=== PATIENT | female | born 1985 | race Caucasian/White ===

== ENCOUNTER 2016-12-23 12:09 | Emergency (ER) | payer MEDICAID | END 2016-12-23 14:41 | disposition home or self-care (01) | DX: L73.9 Follicular disorder, unspecified (principal); J45.909 Unspecified asthma, uncomplicated; K21.9 Gastro-esophageal reflux disease without esophagitis; F17.200 Nicotine dependence, unspecified, uncomplicated ==

== ENCOUNTER 2017-01-28 12:51 | Emergency (ER) | payer MEDICAID ==
[2017-01-28] MEDS ORDERED: ONDANSETRON ODT 4 MG TABLET TL STA (13:34)
[2017-01-28] MEDS ORDERED: IBUPROFEN 800 MG TABLET PO STA (13:34)
[2017-01-28] MEDS ORDERED: ONDANSETRON ODT 4 MG TABLET ONE (13:35)
[2017-01-28] MEDS ORDERED: IBUPROFEN 800 MG TABLET PO ONE (13:36)
--- NOTE | 2017-01-28 13:36 | ED Physician Documentation ---
PD HPI ABD PAIN - Stated complaint Stated Complaint: FEMALE - Chief complaint Chief Complaint: Back Pain - History obtained from History obtained from: Patient - History of Present Illness Timing - onset: Other (31-year-old woman with history of conservatively managed renal colic with 3 days of urinary frequency and today right greater than left flank pain wrapping around to the front with continued urinary frequency and suprapubic pressure. She is currently on her menses. She is nauseous but no vomiting. She has had chills but no fevers.) Review of Systems Constitutional: reports: Chills. denies: Fever Cardiac: denies: Chest pain / pressure, Palpitations Respiratory: denies: Dyspnea, Cough GI: reports: Nausea. 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, Tubal ligation HEENT: Tonsil/Adenoidectomy - Present Medications Home Medications: Ambulatory Orders Medication Instructions Recorded Confirmed Control 1 tab PO DAILY 12/23/16 Mupirocin Calcium [Bactroban] 1 applic TP BID #60 g 12/23/16 Naphazoline HCl/Pheniramine 1 drops OP Q6H #15 ml 12/23/16 [Naphcon-A Eye Drops] Ciprofloxacin HCl [Cipro] 500 mg PO BID #14 tablet 01/28/17 Ondansetron HCl [Zofran] 4 mg PO Q6H PRN #10 tablet 01/28/17 Oxycodone HCl/Acetaminophen 1 - 2 tab PO Q4H PRN #15 tablet 01/28/17 [Percocet 5-325 mg Tablet] - Allergies Allergies/Adverse Reactions: Allergies Allergy/AdvReac Type Severity Reaction Status Date / Time Cephalosporins Allergy Severe Respiratory Verified 12/23/16 12:18 hydromorphone HCl * Allergy Intermediate Hives Verified 12/23/16 12:18 [From Dilaudid] - Social History Does the pt smoke?: Yes Smoking Status: Current some day smoker Does the pt drink ETOH?: No Does the pt have substance abuse?: No - Immunizations Immunizations are current?: Yes - POLST Patient has POLST: No PD ED PE NORMAL - Vitals Vital signs reviewed: Yes - General General: Alert and oriented X 3, No acute distress - Abdomen Abdomen: Normal bowel sounds, Soft, Non tender - Back Back: Other (+R flank TTP) - Derm Derm: Normal color, Warm and dry - Extremities Extremities: No edema, No calf tenderness / cord - Neuro Neuro: Alert and oriented X 3, Normal speech - Psych Psych: Normal mood, Normal affect Results - Vitals Vitals: Vital Signs - 24 hr 01/28/17 12:59 Temperature 36.6 C Heart Rate 76 Respiratory 16 Rate Blood Pressure 118/71 O2 Saturation 98 Oxygen O2 Source Room air - Labs Labs: Laboratory Tests 01/28/17 13:30 Urine Color YELLOW Urine Clarity HAZY Urine pH 5.5 Ur Specific [place] >=1.030 H Urine Protein 30 H Urine Glucose (UA) NEGATIVE Urine Ketones NEGATIVE Urine Occult Blood MODERATE H Urine Nitrite POSITIVE H Urine Bilirubin NEGATIVE Urine Urobilinogen 0.2 (NORMAL) Ur Leukocyte Esterase MODERATE H Urine RBC 6-10 H Urine WBC >25 H Ur Squamous Epith Cells RARE Squamous Urine Bacteria None Seen Urine Mucus Few Strands Ur Microscopic Review INDICATED Urine Culture Comments INDICATED Urine HCG, Qual NEGATIVE - Rads (name of study) CT KUB Radiology: EMP read contemporaneously (neg x LAD) PD MEDICAL DECISION MAKING - ED course ED course: 31-year-old woman with clinically likely pyelonephritis but with some hematuria and she feels like it is consistent with prior renal colic so infected stone is a concern for CT shows no evidence of this. Initially treated with only NSAIDs as she was driving but her arrived and felt much better after Percocet. The patient and family were counseled as to the diagnosis and need for followup. I counseled the patient with regard to signs and symptoms that would necessitate an urgent reevaluation in the emergency department. They understand they are welcome to return at any time if worse or if not improving as expected. This document was made in part using voice recognition software. While efforts are made to proofread this document, sound alike and grammatical errors may occur. Departure - Departure Disposition: 01 Home, Self Care Clinical Impression: Pyelonephritis Condition: Good Record reviewed to determine appropriate education?: Yes Instructions: Pyelonephritis Dc Prescriptions: Ciprofloxacin HCl [Cipro] 500 mg PO BID #14 tablet Oxycodone HCl/Acetaminophen [Percocet 5-325 mg Tablet] 1 - 2 tab PO Q4H PRN #15 tablet PRN Reason: Pain Ondansetron HCl [Zofran] 4 mg PO Q6H PRN #10 tablet PRN Reason: Nausea / Vomiting Comments: As we discussed we will culture your urine, this results should be done in 48- 72 hours. If an antibiotic change is necessary we will call you. Return if worse in the meantime, especially if you develop flank pain or fevers or cannot keep down the medication. Call your doctor to arrange a follow up appointment. Make the next available appointment. In the interim return anytime if worse or if new symptoms develop. Forms: Activity restrictions
[2017-01-28 13:42] LABS: BILIRUBIN,URINE NEGATIVE (NEGATIVE); PH,URINE 5.5 PH (5.0-7.5)
[2017-01-28 13:45] LABS: HCG UR QUAL NEGATIVE; UA w/ MICROSCOPIC CHARGE YES
[2017-01-28 13:52] LABS: UR CULTURE IF IND INDICATED; WBC,URINE >25 /HPF (0-5)
[2017-01-28] MEDS ORDERED: CIPROFLOXACIN 250 MG TABLET PO STA (14:04)
[2017-01-28] MEDS ORDERED: CIPROFLOXACIN 250 MG TABLET PO ONE (14:06)
[2017-01-28] MEDS ORDERED: oxyCOD/ACETAMIN 5 MG/325 MG TABLET PO STA (14:22)
[2017-01-28] MEDS ORDERED: oxyCOD/ACETAMIN 5 MG/325 MG TABLET PO ONE (14:23)
--- NOTE | 2017-01-28 14:58 | CT Preliminary Report ---
Exam: CT Abdomen/Pelvis W/O IMPRESSION: 1. Negative for urinary tract stone or hydronephrosis. 2. Mildly prominent right lower quadrant mesenteric lymph nodes, probably lymphadenitis. [facility] SITE ID: [id number]
--- NOTE | 2017-01-28 15:00 | CT Report ---
EXAM: CT ABDOMEN AND PELVIS (CT KUB) EXAM DATE: 01/28/2017 02:22 PM. CLINICAL HISTORY: R flank pain, UTI, H/O stone, R/O inf stone. COMPARISONS: None. TECHNIQUE: Routine axial helical CT imaging was performed through the abdomen and pelvis without IV c ontrast. Reconstructions: Coronal and sagittal. In accordance with CT protocol optimization, one or more of the following dose reduction techniques w ere utilized for this exam: automated exposure control, adjustment of mA and/or KV based on patient s ize, or use of iterative reconstructive technique. FINDINGS: Lung Bases: Unremarkable. Right Kidney/Ureter: No stones, hydronephrosis, or hydroureter. No perinephric fat stranding. Left Kidney/Ureter: No stones, hydronephrosis, or hydroureter. No perinephric fat stranding. Other Solid Organs: Noncontrast images of the solid organs are grossly unremarkable. Gallbladder/Bile Ducts: Unremarkable. Peritoneal Cavity: Numerous mildly prominent right lower quadrant mesenteric lymph nodes generally me asuring 6-9 mm. No free fluid, free air, or periaortic lymphadenopathy. No bowel dilation. Normal shala endix. Pelvic Organs: No bladder stones or wall thickening. Noncontrast images of the visualized pelvic orga ns are unremarkable. Vasculature: Unremarkable. Other: None. IMPRESSION: 1. Negative for urinary tract stone or hydronephrosis. 2. Mildly prominent right lower quadrant mesenteric lymph nodes, probably lymphadenitis. [facility] Referring Provider Line: [phone] SITE ID: [id number]
[2017-01-28 15:13] VITALS: BP 108/64
== END 2017-01-28 15:13 | disposition home or self-care (01) ==
LOC: ED 12:51
DX: N12 Tubulo-interstitial nephritis, not specified as acute or chronic (principal); F17.200 Nicotine dependence, unspecified, uncomplicated
CPT/HCPCS: 74176; 81001; 81025; 87077; 87086; 87181; 99282; 99284; A9270; Q0162; 81003

== ENCOUNTER 2017-02-24 17:35 | Emergency (ER) | payer MEDICAID ==
[2017-02-24 17:42] VITALS: BP 124/86
--- NOTE | 2017-02-24 19:57 | ED Physician Documentation ---
PD HPI LOWER EXT INJURY - Stated complaint Stated Complaint: RT KNEE PX - Chief complaint Chief Complaint: Ext Problem - History obtained from History obtained from: Patient - History of Present Illness PD HPI LOW EXT INJURY LOCATION: Right, Knee Type of injury: Twist (no forceful injury. 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 Noted onset of pain when just getting up from floor and felt pain in rihgt knee anteriorly. Having effusion/swelling of the knee later in the day, which has persisted a few days. Pain with flex/extend, twisting, and has had feelings of "unreliable" walking and some giving out/clicking. Has not had locking.). No: Fall, Blunt / blow Where injury occurred: Home Timing - onset: How many days ago (4) Timing - duration: Days (4) Timing - details: Gradual onset, Still present Improved by: Rest Worsened by: Moving, Other (walking) Associated symptoms: Swelling. 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, Ovarian cysts : None HEENT: None Psych: None Musculoskeletal: None Derm: None - Past Surgical History Past Surgical 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, Tubal ligation HEENT: Tonsil/Adenoidectomy - Present Medications Home Medications: Ambulatory Orders Medication Instructions Recorded Confirmed Control 1 tab PO DAILY 12/23/16 02/24/17 Betamethasone/Propylene Glyc 1 applic EACHEYE DAILY 02/24/17 02/24/17 [Betamethasone Dp Aug 0.05% Oin] Hydrocodone/Acetaminophen [[place] 1 each PO Q6H PRN #20 tablet 02/24/17 5-325 Tablet] Naproxen [Naprosyn] 500 mg PO BID #20 tablet 02/24/17 Sertraline HCl [Zoloft] 100 mg PO DAILY 02/24/17 02/24/17 - Allergies Allergies/Adverse Reactions: Allergies Allergy/AdvReac Type Severity Reaction Status Date / Time Cephalosporins Allergy Severe Respiratory Verified 02/24/17 17:41 hydromorphone HCl * Allergy Intermediate Hives Verified 02/24/17 17:41 [From Dilaudid] - Social History Does the pt smoke?: Yes Smoking Status: Current some day smoker Does the pt drink ETOH?: No Does the pt have substance abuse?: No - Immunizations Immunizations are current?: Yes - POLST Patient has POLST: No PD ED PE NORMAL - Vitals Vital signs reviewed: Yes - General General: Alert and oriented X 3, Well developed/nourished - Back Back: No CVA TTP, No spinal TTP - Derm Derm: Normal color, Warm and dry, No rash - Extremities Extremities: Other (moderate effusion noted in right knee. Tender anteriorly, medially, popliteal area. Most areas tender so not able to get reasonable ligament testing of the knee. No gross laxity on ROM. Hurts for full extension and flex beyond about 60 degrees. No redness nor warmth of the knee. ) - Neuro Neuro: Alert and oriented X 3, No motor deficit, No sensory deficit Results - Vitals Vitals: Oxygen O2 Source Room air PD MEDICAL DECISION MAKING - ED course Complexity details: considered differential (seems like meniscal symptoms, though could have had ACL process, but not much of a force injury for that. I don't feel xrays are useful without mechanism of more forcefull injury. Will give knee brace and crutches, NSAIDs and pain meds. To see Ortho in about 4-7 days when effusion and degree of pain is less. At this point the brace and crutches would be sufficient for meniscal and ACL injury should that be the correct problem. ), d/w patient Departure - Departure Disposition: 01 Home, Self Care Clinical Impression: Knee injury Qualifiers: Encounter type: initial encounter Laterality: right Qualified Code(s): S89.91XA - Unspecified injury of right lower leg, initial encounter Condition: Stable Record reviewed to determine appropriate education?: Yes Instructions: ED Meniscal Injury Knee Poss Follow-Up: Dona Beasley MD [Primary Care Provider] - Dann Fisher MD [Provider Admit Priv/Credential] - Prescriptions: Naproxen [Naprosyn] 500 mg PO BID #20 tablet Hydrocodone/Acetaminophen [[place] 5-325 Tablet] 1 each PO Q6H PRN #20 tablet PRN Reason: Pain Comments: This sounds like it might be a meniscal injury versus cruciate ligament. The knee is tender enough right now to not get a good exam and so will treat it like those things with knee brace and crutches, NSIADs, pain meds. Give it time for the swelling to go down and should be easier to tell on exam. Follow up with Orthopedics next week, call tomorrow for an appt. Ice and elevate often the next couple of days. Knee brace when up and around and could even sleep with it if it helps. Discharge Date/Time: 02/24/17 20:55
[2017-02-24] MEDS ORDERED: HYDROcod/ACETAM 5/325 MG TABLET PO STA (20:28)
[2017-02-24] MEDS ORDERED: IBUPROFEN 600 MG TABLET PO STA (20:28)
[2017-02-24] MEDS ORDERED: HYDROcod/ACET 5/325 Prepack 6 PO ONE ×2 (20:28→20:31)
[2017-02-24] MEDS ORDERED: IBUPROFEN 600 MG TABLET PO ONE (20:31)
[2017-02-24] MEDS ORDERED: HYDROcod/ACETAM 5/325 MG TABLET ONE (20:31)
== END 2017-02-24 20:55 | disposition home or self-care (01) ==
LOC: ED 17:35
DX: S89.91XA Unspecified injury of right lower leg, initial encounter (principal); X50.1XXA Overexertion from prolonged static or awkward postures, initial encounter; Y93.89 Activity, other specified; Y92.009 Unspecified place in unspecified non-institutional (private) residence as the place of occurrence of the external cause; F17.200 Nicotine dependence, unspecified, uncomplicated
CPT/HCPCS: 99283; A9270

== ENCOUNTER 2017-11-10 18:59 | Emergency (ER) | payer MEDICAID ==
[2017-11-10] MEDS ORDERED: oxyCOD/ACETAMIN 5 MG/325 MG TABLET PO STA (19:44)
--- NOTE | 2017-11-10 19:53 | ED Physician Documentation ---
History of Present Illness - Stated complaint Stated Complaint: cough - Chief complaint Chief Complaint: General - History obtained from History obtained from: Patient - History of Present Illness Timing: Other (She has been sick for about a week with cough, right-sided headache, chills and body aches. Cough got worse 3 days ago when starting yesterday she started to run a fever. She has been taking Robitussin with incomplete relief.) Review of Systems Constitutional: reports: Fever, Chills, Myalgias, Fatigue Nose: denies: Rhinorrhea / runny nose, Congestion, Sinus pressure / pain Throat: denies: Sore throat Cardiac: reports: Chest pain / pressure Respiratory: reports: Cough. 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 HEENT: Tonsil/Adenoidectomy - Present Medications Home Medications: Ambulatory Orders Medication Instructions Recorded Confirmed Guaifenesin/Pseudoephedrne HCl 1 each PO BID PRN #20 tab.er.12h 11/10/17 [Mucinex D ER 600-60 mg Tablet] guaiFENesin/CODEINE [Robitussin AC] 5 - 10 ml PO Q6H PRN #120 ml 11/10/17 - Allergies Allergies/Adverse Reactions: Allergies Allergy/AdvReac Type Severity Reaction Status Date / Time Cephalosporins Allergy Severe Respiratory Verified 11/10/17 19:27 hydromorphone HCl * Allergy Intermediate Hives Verified 11/10/17 19:27 [From Dilaudid] acetaminophen [From Vicodin] Allergy Rash Verified 11/10/17 19:27 hydrocodone [From Vicodin] Allergy Rash Verified 11/10/17 19:27 - Social History Does the pt smoke?: Yes Smoking Status: Current every day smoker Does the pt drink ETOH?: No Does the pt have substance abuse?: No - Immunizations Immunizations are current?: Yes - POLST Patient has POLST: No PD ED PE NORMAL - Vitals Vital signs reviewed: Yes - General General: Alert and oriented X 3, No acute distress - HEENT HEENT: PERRL, EOMI, Ears normal, Moist mucous membranes - Neck Neck: Supple, no meningeal sign, No bony TTP - Cardiac Cardiac: RRR, No murmur - Respiratory Respiratory: No respiratory distress, Clear bilaterally - Abdomen Abdomen: Soft, Non tender - Derm Derm: Normal color, Warm and dry - Neuro Neuro: Alert and oriented X 3, Normal speech - Psych Psych: Normal mood, Normal affect Results - Vitals Vitals: Vital Signs - 24 hr 11/10/17 19:03 Temperature 36.3 C L Heart Rate 99 Respiratory 17 Rate Blood Pressure 127/75 O2 Saturation 100 Oxygen O2 Source Room air - EKG (time done) 2001 Rate: Rate (enter#) (86) Rhythm: NSR [place]: Normal Intervals: Normal [place] QRS: Normal Ischemia: Normal ST segments Computer interpretation: Agree with computer - Rads (name of study) 2v chest Radiology: EMP read contemporaneously (NAD) PD MEDICAL DECISION MAKING - ED course ED course: 32-year-old woman with what sounds like a viral syndrome but predominant and biphasic cough, normal vital signs. Chest x-ray negative. She was having chest pain with it as well which necessitated an EKG that was also normal. Departure - Departure Disposition: 01 Home, Self Care Clinical Impression: Upper respiratory infection Condition: Good Record reviewed to determine appropriate education?: Yes Instructions: ED URI Viral Prescriptions: guaiFENesin/CODEINE [Robitussin AC] 5 - 10 ml PO Q6H PRN #120 ml PRN Reason: Cough Guaifenesin/Pseudoephedrne HCl [Mucinex D ER 600-60 mg Tablet] 1 each PO BID PRN #20 tab.er.12h PRN Reason: congestion Comments: Call your doctor to arrange a follow-up appointment, make the next available appointment. In the interim, return anytime if worse or if new symptoms develop.
--- NOTE | 2017-11-10 20:22 | XRAY Preliminary Report ---
Exam: XR CHEST 2 VIEW X-RAY IMPRESSION: No acute intrathoracic plain film abnormality. [facility] SITE ID: [id number]
--- NOTE | 2017-11-10 20:22 | XRAY Report ---
EXAM: CHEST RADIOGRAPHY EXAM DATE: 11/10/2017 07:59 PM. CLINICAL HISTORY: Cough. COMPARISON: 07/12/2016. TECHNIQUE: 2 views. FINDINGS: Lungs/Pleura: No focal opacities evident. No pleural effusion. No pneumothorax. Normal volumes. Mediastinum: Heart and mediastinal contours are unremarkable. Other: None. IMPRESSION: No acute intrathoracic plain film abnormality. [facility] Referring Provider Line: [phone] SITE ID: [id number]
[2017-11-10 20:54] VITALS: BP 136/78
== END 2017-11-10 20:51 | disposition home or self-care (01) ==
LOC: ED 18:59
DX: J06.9 Acute upper respiratory infection, unspecified (principal); F17.200 Nicotine dependence, unspecified, uncomplicated
CPT/HCPCS: 71046; 93005; 99283; A9270

== ENCOUNTER 2017-12-25 17:36 | Emergency (ER) | payer MEDICAID ==
[2017-12-25 19:50] VITALS: BP 120/77
--- NOTE | 2017-12-25 20:14 | ED Physician Documentation ---
PD HPI LOWER EXT INJURY - Stated complaint Stated Complaint: RT ANKLE INJ - Chief complaint Chief Complaint: Ext Problem - History obtained from History obtained from: Patient - History of Present Illness PD HPI LOW EXT INJURY LOCATION: Right, Ankle Type of injury: Fall (she slipped on steps and struck ankle and pulled on Achilles. Has tight achilles so hurts with stretcching it.) Timing - onset: Today Timing - details: Abrupt onset, Still present Worsened by: Moving, Palpating, Other (flex and extend of ankle.) Associated symptoms: No: Weakness, Numbness, Swelling Similar symptoms before: Diagnosis (achilles strain - had partial tear when younger and healed stiff/short.) Recently seen: Not recently seen Review of Systems Skin: denies: Abrasion (s), Laceration (s) Musculoskeletal: denies: Neck pain, Back pain, Joint swelling Neurologic: denies: Focal weakness, Numbness PD PAST MEDICAL HISTORY - Past Medical History Past Medical History: Yes Cardiovascular: None Respiratory: Asthma Neuro: Headache/migraine Endocrine/Autoimmune: None GI: GERD 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, Ovarian cysts : None HEENT: None Psych: None Musculoskeletal: None Derm: None - Past Surgical History 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, 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 HEENT: Tonsil/Adenoidectomy - Present Medications Home Medications: Ambulatory Orders Medication Instructions Recorded Confirmed No Known Home Medications [No 12/25/17 12/25/17 Known Home Medications] - Allergies Allergies/Adverse Reactions: Allergies Allergy/AdvReac Type Severity Reaction Status Date / Time Cephalosporins Allergy Severe Respiratory Verified 11/10/17 19:27 hydromorphone HCl * Allergy Intermediate Hives Verified 11/10/17 19:27 [From Dilaudid] acetaminophen [From Vicodin] Allergy Rash Verified 11/10/17 19:27 hydrocodone [From Vicodin] Allergy Rash Verified 11/10/17 19:27 - Social History Does the pt smoke?: Yes Smoking Status: Current every day smoker Does the pt drink ETOH?: No Does the pt have substance abuse?: No - Immunizations Immunizations are current?: Yes - POLST Patient has POLST: No PD ED PE NORMAL - Vitals Vital signs reviewed: Yes - General General: Alert and oriented X 3, Well developed/nourished - Back Back: No spinal TTP - Derm Derm: Normal color, Warm and dry, No rash - Extremities Extremities: Other (achilles area laterally with tenderness. No palpable defect in Achilles. Limited ROM of ankle flex/ext due to hurting. No effusion. Not tender at malleoli. ) Results - Vitals Vitals: Oxygen O2 Source Room air PD MEDICAL DECISION MAKING - ED course Complexity details: reviewed results, considered differential (achilles tenderness without disruption. ), d/w patient Departure - Departure Disposition: 01 Home, Self Care Clinical Impression: Strain of right Achilles tendon, initial encounter Condition: Stable Record reviewed to determine appropriate education?: Yes Instructions: Achilles Tendonitis Follow-Up: Dona Beasley MD [Primary Care Provider] - [facility] [Provider Group] Comments: Use the walking boot when up and around for the next 1-2 weeks until better. Consider some ibuprofen 2-3 times a day for the next 5 or 6 days. Add Tylenol if needed for pain. Follow-up with orthopedics if not better over the next week or so. Discharge Date/Time: 12/25/17 20:45
[2017-12-25] MEDS ORDERED: IBUPROFEN 600 MG TABLET PO STA (20:28)
== END 2017-12-25 20:45 | disposition home or self-care (01) ==
LOC: ED 17:36
DX: F17.200 Nicotine dependence, unspecified, uncomplicated (principal); S86.011A Strain of right Achilles tendon, initial encounter; W10.9XXA Fall (on) (from) unspecified stairs and steps, initial encounter; Y93.01 Activity, walking, marching and hiking
CPT/HCPCS: 99282; 99283; A9270

== ENCOUNTER 2018-03-16 00:36 | Emergency (ER) | payer MEDICAID ==
[2018-03-16] MEDS ORDERED: diazePAM INJ 5 MG/ML SYRINGE IM STA (01:00)
[2018-03-16] MEDS ORDERED: DEXAMETHASONE 10 MG/ML VIAL PO STA (01:00)
[2018-03-16] MEDS ORDERED: KETOROLAC 60 MG/2 ML VIAL IM STA (01:00)
--- NOTE | 2018-03-16 01:02 | ED Physician Documentation ---
PD HPI BACK PAIN - Stated complaint Stated Complaint: LOWER BACK PX - Chief complaint Chief Complaint: Back Pain - History obtained from History obtained from: Patient - History of Present Illness Timing - onset: How many hours ago (1) Timing - duration: Hours (1) Timing - details: Abrupt onset Pain level max: 9 Pain level now: 9 Location: Lower, Right, Left Quality: Pain, Spasm Associated symptoms: No: Fever, Weakness, Numbness, Incontinent of urine, Unable to urinate, Hematuria, Incontinent of stool Improves with: Rest Worsened by: Movement, Lifting, Twisting Contributing factors: Twisting. No: Anticoagulated, Cancer, IVDA Similar symptoms before: Other (has seen a chiropractor for back pain) Recently seen: Not recently seen - Additional information Additional information: Patient states he was on her hands and knees looking for her cat when she twisted and felt something "pop" in her back. No increasing pain. Pain with movement especially. Has not taken anything for the pain Review of Systems Ten Systems: 10 systems reviewed and negative Constitutional: denies: Fever, Chills Ears: denies: Ear pain Throat: denies: Sore throat Cardiac: denies: Chest pain / pressure Respiratory: denies: Cough GI: denies: Abdominal Pain, Nausea, Vomiting, Diarrhea : denies: Dysuria, Frequency, Hesitancy, Unable to Void, Incontinent, Now EGA Skin: denies: Rash Musculoskeletal: denies: Neck pain Neurologic: reports: Numbness (States had tingling in the right arm and right leg, this has since resolved.). denies: Focal weakness, Headache PD PAST MEDICAL HISTORY - Past Medical History Cardiovascular: None Respiratory: Asthma Endocrine/Autoimmune: None GI: GERD CONTENT EDITOR: None, Ovarian cysts : None HEENT: None Psych: None Musculoskeletal: None Derm: None - Past Surgical History Past Surgical History: Yes /CONTENT EDITOR: section, Tubal ligation HEENT: Tonsil/Adenoidectomy - Present Medications Home Medications: Ambulatory Orders Medication Instructions Recorded Confirmed Meloxicam [Mobic] 15 mg PO DAILY PRN #20 tablet 03/16/18 Propranolol [Inderal] 40 mg PO TID 03/16/18 03/16/18 diazePAM [Valium] 5 - 10 mg PO TID PRN #15 tablet 03/16/18 - Allergies Allergies/Adverse Reactions: Allergies Allergy/AdvReac Type Severity Reaction Status Date / Time Cephalosporins Allergy Severe Respiratory Verified 03/16/18 00:47 hydromorphone HCl * Allergy Intermediate Hives Verified 03/16/18 00:47 [From Dilaudid] acetaminophen [From Vicodin] Allergy Rash Verified 03/16/18 00:47 hydrocodone [From Vicodin] Allergy Rash Verified 03/16/18 00:47 - Social History Does the pt smoke?: Yes Smoking Status: Current every day smoker Does the pt drink ETOH?: No Does the pt have substance abuse?: No - Immunizations Immunizations are current?: Yes - POLST Patient has POLST: No PD ED PE NORMAL - Vitals Vital signs reviewed: Yes - General General: Alert and oriented X 3, Other (Appears uncomfortable) - HEENT HEENT: PERRL, Ears normal, Moist mucous membranes, Pharynx benign - Neck Neck: Supple, no meningeal sign, No bony TTP - Cardiac Cardiac: RRR, Strong equal pulses - Respiratory Respiratory: No respiratory distress, Clear bilaterally - Abdomen Abdomen: Soft, Non tender, Non distended - Back Back: No CVA TTP, Other (Diffuse tenderness over the low lumbar spine. No step- off or deformity. Significant paraspinal muscle spasm present.) - Derm Derm: Warm and dry - Extremities Extremities: No deformity, No tenderness to palpate, No edema, Other (normal bilateral lower extremity patellar and ankle jerk reflexes. Normal great toe extension bilaterally) - Neuro Neuro: Alert and oriented X 3, No motor deficit, No sensory deficit, Other (No saddle anesthesia) Results - Vitals Vitals: Vital Signs - 24 hr 03/16/18 03/16/18 00:44 01:56 Temperature 36.8 C Heart Rate 89 69 Respiratory 20 16 Rate Blood Pressure 140/77 H 112/60 O2 Saturation 99 99 Oxygen O2 Source Room air - Rads (name of study) Lumbar spine x-ray Radiology: Prelim report reviewed, EMP read contemporaneously, See rad report ( No acute lumbar spine abnormality. ) PD MEDICAL DECISION MAKING - ED course Complexity details: reviewed results, re-evaluated patient, considered differential (no cauda equina, no spinal epidural abscess, no fracture, no aortic dissection or evidence of aneursym rupture), d/w patient ED course: Patient is a 32-year-old female who presents to the emergency department with what appears to be spasm of her lumbar spine area. Feels much better after Toradol and Valium. Ambulating well. No evidence of cauda equina, acute fracture. Normal x-ray. Her mother is driving her home. Patient counseled regarding signs and symptoms for which I believe and urgent re-evaluation would be necessary. Patient with good understanding of and agreement to plan and is comfortable going home at this time This document was made in part using voice recognition software. While efforts are made to proofread this document, sound alike and grammatical errors may occur. - Sepsis Event Vital Signs: Vital Signs - 24 hr 03/16/18 03/16/18 00:44 01:56 Temperature 36.8 C Heart Rate 89 69 Respiratory 20 16 Rate Blood Pressure 140/77 H 112/60 O2 Saturation 99 99 Oxygen O2 Source Room air Departure - Departure Disposition: 01 Home, Self Care Clinical Impression: Back muscle spasm Lumbar strain Qualifiers: Encounter type: initial encounter Qualified Code(s): S39.012A - Strain of muscle, fascia and tendon of lower back, initial encounter Condition: Good Instructions: ED Sprain Strain Lumbar Follow-Up: Dona Beasley MD [Primary Care Provider] - Within 1 week Prescriptions: diazePAM [Valium] 5 - 10 mg PO TID PRN #15 tablet PRN Reason: Spasms Meloxicam [Mobic] 15 mg PO DAILY PRN #20 tablet PRN Reason: pain Comments: Return if you worsen. This should improve over the next few days. You may also try a heating pads and ice packs at home. Do not drive or operate heavy machinery while taking the Valium Forms: Activity restrictions Discharge Date/Time: 03/16/18 02:02
[2018-03-16] MEDS ORDERED: diazePAM 5 MG TABLET PO STA (01:11)
[2018-03-16] MEDS ORDERED: CHERRY SYRUP 10 ML UDC PO ONE (01:24)
--- NOTE | 2018-03-16 01:35 | XRAY Report ---
Procedure Date: 03/16/2018 Accession Number: [id number] / [id number] Procedure: XR - Lumbar Spine 2 View CPT Code: FULL RESULT: EXAM: LUMBOSACRAL SPINE RADIOGRAPHY EXAM DATE: 03/16/2018 01:26 AM. CLINICAL HISTORY: Low back pain, L3-5. COMPARISONS: None. TECHNIQUE: 3 views. FINDINGS: Alignment: Unremarkable. Bones: Five [id number] lumbar vertebral bodies are present. No fractures or bone lesions. Disks: Disk heights are maintained. Facets: Unremarkable. Sacroiliac Joints: Unremarkable. Soft Tissues: Grossly unremarkable. IMPRESSION: 1. No acute lumbar spine abnormality. RADIA
[2018-03-16 01:58] VITALS: BP 112/60
== END 2018-03-16 02:02 | disposition home or self-care (01) ==
LOC: ED 00:36
DX: M62.830 Muscle spasm of back (principal); S39.012A Strain of muscle, fascia and tendon of lower back, initial encounter
CPT/HCPCS: 72100; 96372; 99283; A9270

== ENCOUNTER 2018-04-28 20:02 | Emergency (ER) | payer MEDICAID ==
[2018-04-28] MEDS ORDERED: predniSONE 20 MG TABLET PO STA (20:17)
[2018-04-28] MEDS ORDERED: diphenhydrAMINE 25 MG CAPSULE PO STA (20:27)
[2018-04-28 20:57] VITALS: BP 133/82
--- NOTE | 2018-04-28 21:04 | ED Physician Documentation ---
History of Present Illness - Stated complaint Stated Complaint: THROAT TIGHTNESS - Chief complaint Chief Complaint: Allergic Rx - History obtained from History obtained from: Patient, Family - History of Present Illness Timing: Today Pain level max: 0 Pain level now: 0 Improved by: benadryl Worsened by: nothing - Additonal information Additional information: Patient is a 32-year-old female who presents to the emergency department stating that after she was eating lunch today she felt tingling to the both sides of her face and scratching a sore throat. Seemed to improve with Benadryl but is now recurring. Has not having any difficulty breathing or swallowing at this time. No possibility of . 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, Ovarian cysts : None HEENT: None Psych: None Musculoskeletal: None Derm: None - Past Surgical History Past Surgical History: Yes /HOSPICE CHAPLAIN: section, Tubal ligation HEENT: Tonsil/Adenoidectomy - Present Medications Home Medications: Ambulatory Orders Medication Instructions Recorded Confirmed Meloxicam [Mobic] 15 mg PO DAILY PRN #20 tablet 03/16/18 Propranolol [Inderal] 40 mg PO TID 03/16/18 03/16/18 diazePAM [Valium] 5 - 10 mg PO TID PRN #15 tablet 03/16/18 predniSONE [Prednisone] 40 mg PO DAILY #6 tablet 04/28/18 - Allergies Allergies/Adverse Reactions: Allergies Allergy/AdvReac Type Severity Reaction Status Date / Time Cephalosporins Allergy Severe Respiratory Verified 04/28/18 20:06 hydromorphone HCl * Allergy Intermediate Hives Verified 04/28/18 20:06 [From Dilaudid] acetaminophen [From Vicodin] Allergy Rash Verified 04/28/18 20:06 hydrocodone [From Vicodin] Allergy Rash Verified 04/28/18 20:06 - Social History Does the pt smoke?: Yes Smoking Status: Current every day smoker Does the pt drink ETOH?: No Does the pt have substance abuse?: No - Immunizations Immunizations are current?: Yes - POLST Patient has POLST: No PD ED PE NORMAL - Vitals Vital signs reviewed: Yes - General General: Alert and oriented X 3, No acute distress - HEENT HEENT: Ears normal, Moist mucous membranes, Pharynx benign - Neck Neck: Supple, no meningeal sign - Cardiac Cardiac: RRR - Respiratory Respiratory: No respiratory distress, Clear bilaterally, Other (no wheezing or stridor) - Abdomen Abdomen: Soft, Non tender, Non distended - Derm Derm: Warm and dry, No rash - Extremities Extremities: No edema - Neuro Neuro: Alert and oriented X 3 - Psych Psych: Normal mood, Normal affect Results - Vitals Vitals: Vital Signs - 24 hr 04/28/18 04/28/18 20:06 20:56 Temperature 36.4 C L Heart Rate 80 75 Respiratory 18 16 Rate Blood Pressure 140/82 H 133/82 H O2 Saturation 99 98 Oxygen O2 Source Room air PD MEDICAL DECISION MAKING - ED course Complexity details: re-evaluated patient, considered differential, d/w patient, d/w family ED course: Patient is a 32-year-old female who presents with a generalized allergic reaction to food she was eating earlier today. Given steroids and Benadryl here. Symptoms resolved. Will place on steroids for the next few days and have her follow-up with her doctor. She has multiple food allergies and unsure what she was allergic to today. Patient counseled regarding signs and symptoms for which I believe and urgent re-evaluation would be necessary. Patient with good understanding of and agreement to plan and is comfortable going home at this time This document was made in part using voice recognition software. While efforts are made to proofread this document, sound alike and grammatical errors may occur. - Sepsis Event Vital Signs: Vital Signs - 24 hr 04/28/18 04/28/18 20:06 20:56 Temperature 36.4 C L Heart Rate 80 75 Respiratory 18 16 Rate Blood Pressure 140/82 H 133/82 H O2 Saturation 99 98 Oxygen O2 Source Room air Departure - Departure Disposition: 01 Home, Self Care Clinical Impression: Allergic reaction Qualifiers: Encounter type: initial encounter Qualified Code(s): T78.40XA - Allergy, unspecified, initial encounter Condition: Good Instructions: ED Allergic Reaction Local Other Follow-Up: Cousins,Dona A, MD [Primary Care Provider] - Within 1 week Prescriptions: predniSONE [Prednisone] 40 mg PO DAILY #6 tablet Comments: Return if you worsen. Use the prednisone at home for the next 3 days. Discharge Date/Time: 04/28/18 21:10
== END 2018-04-28 21:10 | disposition home or self-care (01) ==
LOC: ED 20:02
DX: T78.1XXA Other adverse food reactions, not elsewhere classified, initial encounter (principal); F17.200 Nicotine dependence, unspecified, uncomplicated
CPT/HCPCS: 99283; A9270; J7512

== ENCOUNTER 2018-09-20 17:09 | Emergency (ER) | payer MEDICAID ==
[2018-09-20] MEDS ORDERED: DEXAMETHASONE 10 MG/ML VIAL PO STA (18:09)
[2018-09-20] MEDS ORDERED: ALBUTEROL NEB 2.5 MG/3 ML INH STA (18:09)
--- NOTE | 2018-09-20 18:11 | ED Physician Documentation ---
History of Present Illness - Stated complaint Stated Complaint: COUGH/FEVER - Chief complaint Chief Complaint: Fever - History obtained from History obtained from: Patient, Family - History of Present Illness Timing: How many days ago (3) Pain level max: 0 Pain level now: 0 Improved by: rest Worsened by: exertion - Additonal information Additional information: 32-year-old female presents to the emergency department with subjective fevers, runny nose, congestion cough and fatigue for the past several days. Did not receive her flu shot this year. She used to use albuterol inhalers but is now out. Feels like she is having a harder time breathing than usual. She is taking [id number] medications without relief. Denies any possibility of . Is not breast-feeding. 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: section, Tubal ligation HEENT: Tonsil/Adenoidectomy - Present Medications Home Medications: Ambulatory Orders Medication Instructions Recorded Confirmed Propranolol [Inderal] 40 mg PO TID 03/16/18 09/20/18 Albuterol Sulf [Ventolin Hfa 1 - 2 puffs INH Q4HR PRN #1 inhaler 09/20/18 Inhaler] Benzonatate [Tessalon Perle] 100 - 200 mg PO TID PRN #30 capsule 09/20/18 Cetirizine HCl/Pseudoephedrine 1 each PO BID PRN #30 tab.er.12h 09/20/18 [Zyrtec-D Tablet] - Allergies Allergies/Adverse Reactions: Allergies Allergy/AdvReac Type Severity Reaction Status Date / Time Cephalosporins Allergy Severe Respiratory Verified 04/28/18 20:06 hydromorphone HCl * Allergy Intermediate Hives Verified 04/28/18 20:06 [From Dilaudid] acetaminophen [From Vicodin] Allergy Rash Verified 04/28/18 20:06 hydrocodone [From Vicodin] Allergy Rash Verified 09/20/18 17:17 - Social History Does the pt smoke?: Yes Smoking Status: Current every day smoker Does the pt drink ETOH?: No Does the pt have substance abuse?: No - Immunizations Immunizations are current?: Yes - POLST Patient has POLST: No PD ED PE NORMAL - Vitals Vital signs reviewed: Yes - General General: Alert and oriented X 3, No acute distress, Well developed/nourished - HEENT HEENT: PERRL, Ears normal, Moist mucous membranes, Pharynx benign - Neck Neck: Supple, no meningeal sign - Cardiac Cardiac: RRR - Respiratory Respiratory: Other (Wheezing bilaterally) - Abdomen Abdomen: Soft, Non tender, Non distended - Derm Derm: Warm and dry, No rash - Neuro Neuro: Alert and oriented X 3 - Psych Psych: Normal mood, Normal affect Results - Vitals Vitals: Vital Signs - 24 hr 09/20/18 09/20/18 09/20/18 17:15 18:31 18:50 Temperature 36.4 C L 36.5 C Heart Rate 75 90 88 Respiratory 20 18 14 Rate Blood Pressure 126/91 H 135/81 H O2 Saturation 100 97 Oxygen O2 Source Room air - Labs Labs: Laboratory Tests 09/20/18 18:01 Influenza A (Rapid) Negative Influenza B (Rapid) Negative PD MEDICAL DECISION MAKING - ED course Complexity details: reviewed results, re-evaluated patient, considered differential, d/w patient, d/w family ED course: 32-year-old female with what appears to be viral upper respiratory infection. She is very well-appearing, nontoxic. No respiratory distress. Feels better after nebulizer treatment. Negative influenza. No evidence of pneumonia. We will continue supportive care and follow-up with her doctor. This document was made in part using voice recognition software. While efforts are made to proofread this document, sound alike and grammatical errors may occur. Departure - Departure Disposition: 01 Home, Self Care Clinical Impression: Acute viral syndrome Condition: Good Instructions: ED Viral Syndrome Follow-Up: your,doctor in 1 week [Other] Prescriptions: Albuterol Sulf [Ventolin Hfa Inhaler] 1 - 2 puffs INH Q4HR PRN #1 inhaler PRN Reason: Shortness Of Air/Wheezing Benzonatate [Tessalon Perle] 100 - 200 mg PO TID PRN #30 capsule PRN Reason: Cough Cetirizine HCl/Pseudoephedrine [Zyrtec-D Tablet] 1 each PO BID PRN #30 tab.er.12h PRN Reason: nasal congestion Comments: Drink plenty of fluids. Return if you worsen. Forms: Activity restrictions Discharge Date/Time: 09/20/18 19:06
[2018-09-20 18:51] VITALS: BP 135/81
== END 2018-09-20 19:06 | disposition home or self-care (01) ==
LOC: ED 17:09
DX: B34.9 Viral infection, unspecified (principal); F17.200 Nicotine dependence, unspecified, uncomplicated
CPT/HCPCS: 87275; 87276; 94640; 99283

== ENCOUNTER 2018-11-07 06:28 | Emergency (ER) | payer MEDICAID ==
[2018-11-07 06:39] VITALS: BP 133/79
--- NOTE | 2018-11-07 06:39 | ED Physician Documentation ---
PD HPI URI - Stated complaint Stated Complaint: SMITH/FEVER/COUGH - History obtained from History obtained from: Patient - History of Present Illness Timing - onset: Yesterday Timing duration: Days (1) Timing details: Abrupt onset, Still present Associated symptoms: Fever, Nasal congestion, Sore throat, Dry cough, NVD (nausea and vomited couple times last night. Minimal nausea today.) Contributing factors: COPD / asthma. No: Sick contact Improves by: No: Medication Similar symptoms before: Has not had sx before Recently seen: Not recently seen Review of Systems Constitutional: reports: Fever, Chills, Myalgias Nose: reports: Congestion Throat: reports: Sore throat Cardiac: denies: Chest pain / pressure Respiratory: reports: Dyspnea, Cough GI: reports: Nausea, Vomiting (twice last night) Skin: denies: Rash Neurologic: reports: Generalized weakness, Headache. 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, Tubal ligation HEENT: Tonsil/Adenoidectomy - Present Medications Home Medications: Ambulatory Orders Medication Instructions Recorded Confirmed Propranolol [Inderal] 40 mg PO TID 03/16/18 09/20/18 Albuterol Sulf [Ventolin Hfa 1 - 2 puffs INH Q4HR PRN #1 inhaler 09/20/18 Inhaler] Benzonatate [Tessalon Perle] 100 - 200 mg PO TID PRN #30 capsule 09/20/18 Cetirizine HCl/Pseudoephedrine 1 each PO BID PRN #30 tab.er.12h 09/20/18 [Zyrtec-D Tablet] Acetaminophen/Cod 300/30 [Tylenol 1 - 2 each PO Q4-6H PRN #25 tablet 11/07/18 #3] Albuterol Sulf [Ventolin Hfa 1 - 2 puffs INH Q4HR PRN #1 inhaler 11/07/18 Inhaler] Benzonatate [Tessalon Perle] 100 mg PO TID PRN #25 capsule 11/07/18 Dexamethasone [Decadron] 4 mg PO DAILY #5 tablet 11/07/18 Ondansetron Odt [Zofran] 4 mg TL Q6H PRN #10 tablet 11/07/18 Oseltamivir [Tamiflu] 75 mg PO BID #10 capsule 11/07/18 - Allergies Allergies/Adverse Reactions: Allergies Allergy/AdvReac Type Severity Reaction Status Date / Time Cephalosporins Allergy Severe Respiratory Verified 11/07/18 06:39 hydromorphone HCl * Allergy Intermediate Hives Verified 11/07/18 06:39 [From Dilaudid] acetaminophen [From Vicodin] Allergy Rash Verified 11/07/18 06:39 hydrocodone [From Vicodin] Allergy Rash Verified 11/07/18 06:39 - Social History Does the pt smoke?: Yes Smoking Status: Current every day smoker Does the pt drink ETOH?: No Does the pt have substance abuse?: No - Immunizations Immunizations are current?: Yes - POLST Patient has POLST: No PD ED PE NORMAL - Vitals Vital signs reviewed: Yes - General General: Alert and oriented X 3, No acute distress, Well developed/nourished - HEENT HEENT: Ears normal, Pharynx benign - Neck Neck: Supple, no meningeal sign, No adenopathy - Cardiac Cardiac: RRR, No murmur - Respiratory Respiratory: Clear bilaterally - Abdomen Abdomen: Soft, Non tender - Derm Derm: Normal color, Warm and dry - Neuro Neuro: Alert and oriented X 3, No motor deficit, Normal speech Results - Vitals Vitals: Vital Signs - 24 hr 11/07/18 06:37 Temperature 37.4 C Heart Rate 103 H Respiratory 17 Rate Blood Pressure 133/79 H O2 Saturation 98 Oxygen O2 Source Room air PD MEDICAL DECISION MAKING - ED course Complexity details: considered differential (sounds like the flu, with some exac of asthma likely and has migraines/headaches with illness. Does not look meningitic. Has had Tylenol#3 in the past and works well for her for headaches/pains. ), d/w patient Departure - Departure Disposition: 01 Home, Self Care Clinical Impression: Influenza A Condition: Stable Record reviewed to determine appropriate education?: Yes Instructions: ED Flu Prescriptions: Albuterol Sulf [Ventolin Hfa Inhaler] 1 - 2 puffs INH Q4HR PRN #1 inhaler PRN Reason: Shortness Of Air/Wheezing Acetaminophen/Cod 300/30 [Tylenol #3] 1 - 2 each PO Q4-6H PRN #25 tablet PRN Reason: Pain Benzonatate [Tessalon Perle] 100 mg PO TID PRN #25 capsule PRN Reason: Cough Dexamethasone [Decadron] 4 mg PO DAILY #5 tablet Ondansetron Odt [Zofran] 4 mg TL Q6H PRN #10 tablet PRN Reason: Nausea / Vomiting Oseltamivir [Tamiflu] 75 mg PO BID #10 capsule Comments: This sounds like the flu. Treatment is largely directed at symptom improvement. Use albuterol inhaler 2 puffs 4 times a day for the next week and extra times as needed. Decadron 4 inflammation of the bronchials. This will help her generally the cough and also your asthma flareup. Tessalon if needed for cough. Use ondansetron if needed for nausea. Also Tylenol No. 3 for headache and cough. You can decrease the degree of symptoms with the flu a little bit with Tamiflu. Take it a little separate from the other medicines to see if you feel extra nausea or headache subsequent to taking it and if so discontinue. Off work for a few days. Stay well-hydrated. Forms: Activity restrictions
[2018-11-07] MEDS ORDERED: ACETAMINOPHEN 325 MG TABLET PO STA (06:51)
[2018-11-07] MEDS ORDERED: BENZONATATE 100 MG CAPSULE PO STA (06:51)
[2018-11-07] MEDS ORDERED: OSELTAMIVIR 75 MG CAPSULE PO STA (06:51)
[2018-11-07] MEDS ORDERED: DEXAMETHASONE 10 MG/ML VIAL PO STA (06:51)
[2018-11-07] MEDS ORDERED: ONDANSETRON ODT 4 MG TABLET TL STA (06:54)
[2018-11-07] MEDS ORDERED: CHERRY SYRUP 10 ML UDC PO ONE (06:59)
== END 2018-11-07 07:10 | disposition home or self-care (01) ==
LOC: ED 06:28
DX: J10.89 Influenza due to other identified influenza virus with other manifestations (principal); F17.200 Nicotine dependence, unspecified, uncomplicated
CPT/HCPCS: 99283; A9270; Q0162

== ENCOUNTER 2019-08-12 22:28 | Emergency (ER) | payer MEDICAID ==
--- NOTE | 2019-08-12 23:28 | ED Physician Documentation ---
PD HPI ABD PAIN - Stated complaint Stated Complaint: RIGHT SIDE PX/ N/V/D - Chief complaint Chief Complaint: Abd Pain - History obtained from History obtained from: Patient - History of Present Illness Timing - onset: How many days ago (4) Timing - duration: Days Timing - details: Gradual onset, Waxing and waning Pain level now: 6 Quality: Pain Location: All over / everywhere (predominantly RUQ) Improved by: Other (nothing) Worsened by: Other (no exacerbating factors) Associated symptoms: Nausea, Vomiting, Diarrhea. No: Fever Similar symptoms before: Has not had sx before Recently seen: Not recently seen - Additional information Additional information: c/o 4 days of nausea, vomiting. 3 days ago, she then developed abdominal pain which is predominantly RUQ, and associated with increasingly frequent diarrhea. Review of Systems Constitutional: denies: Fever, Chills, Sweats Cardiac: reports: Reviewed and negative Respiratory: reports: Reviewed and negative GI: reports: Abdominal Pain, Nausea, Vomiting, Diarrhea : denies: Dysuria, Frequency Musculoskeletal: denies: Back pain PD PAST MEDICAL HISTORY - Past Medical History Cardiovascular: None Respiratory: Asthma Neuro: None Endocrine/Autoimmune: None GI: GERD CHANNEL SPECIALIST: None, Ovarian cysts : None HEENT: None Psych: None Musculoskeletal: None Derm: None - Past Surgical History Past Surgical History: Yes /CHANNEL SPECIALIST: section, Tubal ligation HEENT: Tonsil/Adenoidectomy - Present Medications Home Medications: Ambulatory Orders Medication Instructions Recorded Confirmed Propranolol [Inderal] 40 mg PO TID 03/16/18 09/20/18 Albuterol Sulf [Ventolin Hfa 1 - 2 puffs INH Q4HR PRN #1 inhaler 09/20/18 Inhaler] Benzonatate [Tessalon Perle] 100 - 200 mg PO TID PRN #30 capsule 09/20/18 Cetirizine HCl/Pseudoephedrine 1 each PO BID PRN #30 tab.er.12h 09/20/18 [Zyrtec-D Tablet] Acetaminophen/Cod 300/30 [Tylenol 1 - 2 each PO Q4-6H PRN #25 tablet 11/07/18 #3] Albuterol Sulf [Ventolin Hfa 1 - 2 puffs INH Q4HR PRN #1 inhaler 11/07/18 Inhaler] Benzonatate [Tessalon Perle] 100 mg PO TID PRN #25 capsule 11/07/18 Ondansetron Odt [Zofran] 4 mg TL Q6H PRN #10 tablet 11/07/18 Oseltamivir [Tamiflu] 75 mg PO BID #10 capsule 11/07/18 dexAMETHasone [Decadron] 4 mg PO DAILY #5 tablet 11/07/18 Diphenoxylate/Atropine [Lomotil] 1 - 2 each PO QID PRN #14 tablet 08/13/19 Ondansetron Odt [Zofran] 4 mg TL Q6H PRN #10 tablet 08/13/19 traMADol [Ultram] 50 - 100 mg PO Q6H PRN #20 tablet 08/13/19 - Allergies Allergies/Adverse Reactions: Allergies Allergy/AdvReac Type Severity Reaction Status Date / Time Cephalosporins Allergy Severe Respiratory Verified 08/12/19 22:35 hydromorphone HCl * Allergy Intermediate Hives Verified 08/12/19 22:35 [From Dilaudid] acetaminophen [From Vicodin] Allergy Rash Verified 08/12/19 22:35 hydrocodone [From Vicodin] Allergy Rash Verified 08/12/19 22:35 - Social History Does the pt smoke?: Yes Smoking Status: Current every day smoker Does the pt drink ETOH?: No Does the pt have substance abuse?: No - Immunizations Immunizations are current?: Yes - POLST Patient has POLST: No PD ED PE NORMAL - Vitals Vital signs reviewed: Yes - General General: Alert and oriented X 3, No acute distress, Well developed/nourished - HEENT HEENT: Moist mucous membranes - Neck Neck: Supple, no meningeal sign - Cardiac Cardiac: RRR, No murmur - Respiratory Respiratory: No respiratory distress, Clear bilaterally - Abdomen Abdomen: Soft, Non distended, Other (TTP across LOWER abdomen (despite c/o upper abdominal pain)) - Back Back: No CVA TTP - Derm Derm: Normal color, Warm and dry, No rash Results - Vitals Vitals: Vital Signs - 24 hr 08/12/19 08/13/19 08/13/19 22:32 01:27 02:28 Temperature 36.8 C Heart Rate 81 80 78 Respiratory 18 18 14 Rate Blood Pressure 142/85 H 120/68 118/67 O2 Saturation 100 98 98 Oxygen O2 Source Room air - Labs Labs: Laboratory Tests 08/12/19 08/12/19 21:35 21:35 WBC 8.9 RBC 4.34 Hgb 12.0 Hct 37.9 MCV 87.3 MCH 27.6 MCHC 31.7 L RDW 13.9 Plt Count 249 MPV 11.8 H Neut # (Auto) 6.0 Lymph # (Auto) 2.1 [place] # (Auto) 0.5 Eos # (Auto) 0.2 Baso # (Auto) 0.0 Absolute Nucleated RBC 0.00 Nucleated RBC % 0.0 Sodium 137 Potassium 3.6 Chloride 103 Carbon Dioxide 27 Anion Gap 7.0 BUN 16 Creatinine 0.8 Estimated GFR (MDRD) 84 L Glucose 98 Calcium 8.8 Total Bilirubin 0.2 AST 15 ALT 17 Alkaline Phosphatase 69 Total Protein 7.3 Albumin 4.0 Globulin 3.3 Albumin/Globulin Ratio 1.2 Lipase 24 - Rads (name of study) CT A/P Radiology: Prelim report reviewed, See rad report PD MEDICAL DECISION MAKING - ED course Complexity details: reviewed results, re-evaluated patient, considered differential, d/w patient Departure - Departure Disposition: 01 Home, Self Care Clinical Impression: Abdominal pain, Vomiting, Diarrhea Condition: Good Instructions: ED Vomiting Diarrhea Nonspecific Ad Prescriptions: Diphenoxylate/Atropine [Lomotil] 1 - 2 each PO QID PRN #14 tablet PRN Reason: Diarrhea Ondansetron Odt [Zofran] 4 mg TL Q6H PRN #10 tablet PRN Reason: Nausea / Vomiting traMADol [Ultram] 50 - 100 mg PO Q6H PRN #20 tablet PRN Reason: Pain Discharge Date/Time: 08/13/19 02:39
[2019-08-12] MEDS ORDERED: SODIUM CHLORIDE 0.9% 1,000 ML IV STA (23:44)
[2019-08-12] MEDS ORDERED: KETOROLAC 30 MG/ML VIAL IVP STA (23:44)
[2019-08-12] MEDS ORDERED: ONDANSETRON 4 MG/2 ML VIAL IVP STA (23:44)
[2019-08-12 23:55] LABS: BASOPHILS % (AUTO) 0.4 %; EOSINOPHILS # (AUTO) 0.2 10^3/uL (0.0-0.7); EOSINOPHILS % (AUTO) 2.7 %; LYMPHOCYTES # (AUTO) 2.1 10^3/uL (1.5-3.5); LYMPHOCYTES % (AUTO) 23.2 %; MEAN CORPUSCULAR HEMOGLOBIN 27.6 pg (27.0-31.0); MEAN CORPUSCULAR HGB CONC 31.7 g/dL (32.0-36.0); MEAN CORPUSCULAR VOLUME 87.3 fL (81.0-99.0); MEAN PLATELET VOLUME 11.8 fL (7.9-10.8); MONOCYTES # (AUTO) 0.5 10^3/uL (0.0-1.0); MONOCYTES % (AUTO) 5.6 %; NEUTROPHILS % (AUTO) 67.8 %; PLT - PLATELET COUNT 249 10^3/uL (130-450); RED BLOOD COUNT 4.34 10^6/uL (4.20-5.40); RED CELL DISTRIBUTION WIDTH 13.9 % (12.0-15.0); WHITE BLOOD COUNT 8.9 x10^3/uL (4.8-10.8)
[2019-08-13 00:06] LABS: ALBUMIN/GLOBULIN RATIO 1.2 (1.0-2.2); BILIRUBIN,TOTAL 0.2 mg/dL (0.2-1.0); CALCIUM 8.8 mg/dL (8.5-10.3); CREATININE 0.8 mg/dL (0.4-1.0); TOTAL PROTEIN 7.3 g/dL (6.7-8.2)
[2019-08-13] MEDS ORDERED: MORPHINE 2 MG/ML CARPUJECT IVP STA (00:57)
[2019-08-13] MEDS ORDERED: IOVERSOL 320 100 ML VIAL IVP ONE ×2 (01:00→01:30)
[2019-08-13] MEDS ORDERED: METOCLOPRAMIDE 10 MG/2 ML VIAL ONE (01:04)
[2019-08-13] MEDS ORDERED: METOCLOPRAMIDE 10 MG/2 ML VIAL IVP STA (01:05)
--- NOTE | 2019-08-13 01:49 | CT Report ---
Reason: abdominal pain Procedure Date: 08/13/2019 Accession Number: [id number] / [id number] Procedure: CT - Abdomen/Pelvis W CPT Code: Final Report FULL RESULT: EXAM: CT ABDOMEN AND PELVIS EXAM DATE: 08/13/2019 01:28 AM. CLINICAL HISTORY: Abdominal pain. COMPARISONS: ABDOMEN/PELVIS W/O 01/28/2017 2:18 PM. TECHNIQUE: Routine helical CT imaging was performed through the abdomen and pelvis. IV contrast: Yes . Enteric contrast: No . Reconstructions: Coronal and sagittal. In accordance with CT protocol optimization, one or more of the following dose reduction techniques were utilized for this exam: automated exposure control, adjustment of mA and/or KV based on patient size, or use of iterative reconstructive technique. FINDINGS: Lung Bases: Unremarkable. Liver: Unremarkable. No suspicious masses. Gallbladder/Bile Ducts: Unremarkable. Spleen: Unremarkable. Pancreas: Unremarkable. Adrenal Glands: Unremarkable. Kidneys: Unremarkable. No suspicious masses or hydronephrosis. Peritoneal Cavity/Bowel: No bowel obstruction or inflammatory process seen. No free air or significant free fluid. No masses or adenopathy. The appendix is normal. No excessive stool burden. Pelvic Organs: Bladder, uterus, and adnexa appear unremarkable. Vasculature: No aneurysms or other significant abnormality. Bones: No significant abnormality. Other: None. IMPRESSION: Normal abdomen and pelvis CT. RADIA
[2019-08-13] MEDS ORDERED: DIPHENOX/ATROPINE 2.5/0.025 MG TABLET PO STA (02:12)
[2019-08-13 02:29] VITALS: BP 118/67
== END 2019-08-13 02:39 | disposition home or self-care (01) ==
LOC: ED 22:28
DX: R10.9 Unspecified abdominal pain (principal); R11.2 Nausea with vomiting, unspecified; R19.7 Diarrhea, unspecified; F17.200 Nicotine dependence, unspecified, uncomplicated
CPT/HCPCS: 36415; 74177; 80053; 83690; 85025; 96361; 96374; 96375; 99284; 99285; A9270; J2765; Q9967

== ENCOUNTER 2019-09-03 11:35 | Emergency (ER) | payer OTHER, MEDICAID ==
[2019-09-03] MEDS ORDERED: ACETAMINOPHEN 325 MG TABLET PO STA (13:10)
[2019-09-03] MEDS ORDERED: SUMAtriptan 25 MG TABLET PO STA (13:10)
[2019-09-03] MEDS ORDERED: IBUPROFEN 600 MG TABLET PO STA (13:10)
[2019-09-03] MEDS ORDERED: ONDANSETRON ODT 4 MG TABLET TL STA (13:10)
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
[2019-09-03 14:41] VITALS: BP 121/71
== END 2019-09-03 14:41 | disposition home or self-care (01) ==
LOC: ED 11:35
DX: S46.811A Strain of other muscles, fascia and tendons at shoulder and upper arm level, right arm, initial encounter (principal); S46.812A Strain of other muscles, fascia and tendons at shoulder and upper arm level, left arm, initial encounter; S39.012A Strain of muscle, fascia and tendon of lower back, initial encounter; V43.52XA Car driver injured in collision with other type car in traffic accident, initial encounter; Y92.410 Unspecified street and highway as the place of occurrence of the external cause; M50.321 Other cervical disc degeneration at C4-C5 level; F17.200 Nicotine dependence, unspecified, uncomplicated
CPT/HCPCS: 72040; 99283; 99284; A9270; Q0162

== ENCOUNTER 2020-03-04 16:51 | Emergency (ER) | payer MEDICAID ==
[2020-03-04] MEDS ORDERED: HYDROcod/ACETAM 5/325 MG TABLET PO STA (17:48)
--- NOTE | 2020-03-04 17:51 | ED Physician Documentation ---
PD HPI LOWER EXT INJURY - Stated complaint Stated Complaint: RIGHT FOOT INJ - Chief complaint Chief Complaint: Ext Problem - History of Present Illness PD HPI LOW EXT INJURY LOCATION: Right, Ankle, Foot Type of injury: Fall, Twist Improved by: Rest, Ice Worsened by: Moving, Palpating Associated symptoms: Numbness - Additional information Additional information: 34-year-old female presents to the emergency department with a chief complaint of right foot and ankle pain. She reports that she was carrying a box and went to step up on a curb however she missed the curb and landed forcefully on the heel and had immediate pain in that area. Reports a history of chronic Achilles tendinosis. She states that at one point she partially tore her Achilles tendon was immobilized improperly and has had chronic shortening since then. Due to that reduced dorsi and plantar flexion of the foot. At present patient reports pain at the base of the heel and of the distal midfoot. There is some associated swelling. Review of Systems Constitutional: denies: Fever Cardiac: denies: Chest pain / pressure, Palpitations Respiratory: denies: Dyspnea, Cough GI: denies: Abdominal Pain Musculoskeletal: reports: Extremity pain, Joint pain, Extremity swelling, Joint swelling Neurologic: reports: Numbness (distal right foot), Syncope, Seizure. denies: Generalized weakness, Focal weakness PD PAST MEDICAL HISTORY - Past Medical History Past Medical History: Yes Cardiovascular: None Respiratory: Asthma Neuro: None Endocrine/Autoimmune: None GI: GERD CAD OPERATOR: None, Ovarian cysts : None HEENT: None Psych: None Musculoskeletal: None Derm: None - Past Surgical History Past Surgical History: Yes /CAD OPERATOR: section, Tubal ligation HEENT: Tonsil/Adenoidectomy - Present Medications Home Medications: Ambulatory Orders Medication Instructions Recorded Confirmed No Known Home Medications 03/04/20 03/04/20 - Allergies Allergies/Adverse Reactions: Allergies Allergy/AdvReac Type Severity Reaction Status Date / Time Cephalosporins Allergy Severe Respiratory Verified 03/04/20 16:56 hydromorphone HCl * Allergy Intermediate Hives Verified 03/04/20 16:56 [From Dilaudid] acetaminophen [From Vicodin] Allergy Rash Verified 03/04/20 16:56 hydrocodone [From Vicodin] Allergy Rash Verified 03/04/20 16:56 - Social History Does the pt smoke?: Yes Smoking Status: Current every day smoker Does the pt drink ETOH?: No Does the pt have substance abuse?: No - Immunizations Immunizations are current?: Yes - POLST Patient has POLST: No PD ED PE NORMAL - General General: Alert and oriented X 3, No acute distress, Well developed/nourished - HEENT HEENT: PERRL, Dentition benign - Cardiac Cardiac: RRR, No murmur - Respiratory Respiratory: No respiratory distress - Abdomen Abdomen: Normal bowel sounds - Extremities Extremities: No deformity. No: No tenderness to palpate (Tenderness at the base of the right heel with palpation. Reduced dorsi and plantar flexion of the right foot. Mild tenderness of the right Achilles tendon. 2+ distal DP pulse. Distal right foot pain without focal tenderness) Results - Vitals Vitals: Vital Signs - 24 hr 03/04/20 03/04/20 16:56 18:43 Temperature 36.5 C Heart Rate 103 H 78 Respiratory 16 18 Rate Blood Pressure 142/90 H 120/74 O2 Saturation 98 96 Oxygen O2 Source Room air - Rads (name of study) right foot/ankle xrays: Radiology: Final report received (No acute fracture or dislocations. Small plantar calcaneal enthesopahy) PD MEDICAL DECISION MAKING - ED course Complexity details: reviewed results, d/w patient ED course: 34-year-old female here with right foot and ankle pain after attempting to step up on a curb, missing the curb, and then landing hard on her heel. Patient does have a known history of partial Achilles tear. She is currently being evaluated by a inside sales account executive for this. - X-ray of the foot and ankle shows a small calcaneal heel spur but there is no acute fracture or dislocation evident of the heel and ankle. - Patient placed in a walking boot and given crutches. Advised to be nonweightbearing for 7 to 10 days. Then attempt to bear weight more consistently if not improved would recommend repeat imaging to rule out occult fracture. Departure - Departure Disposition: 01 Home, Self Care Clinical Impression: Heel pain Qualifiers: Laterality: right Qualified Code(s): M79.671 - Pain in right foot Condition: Stable Instructions: Heel Pain Comments: The x-ray of your foot and ankle do not show anything broken or dislocated. You most likely have a contusion from stepping forcefully. Please wear the walking boot when out of bed for the next 7 to 10 days. You can take [id number] ibuprofen or Tylenol for pain. You are to return here Or follow-up with your foot surgeon if you are not able to bear weight more fully in 7 to 10 days.
[2020-03-04] MEDS ORDERED: oxyCODONE 5 MG TABLET PO STA (17:55)
--- NOTE | 2020-03-04 18:41 | XRAY Report ---
PROCEDURE: Foot 3 View RT INDICATIONS: right foot/heel pain TECHNIQUE: 3 views of the foot were acquired. COMPARISON: None. FINDINGS: Bones: No fractures or dislocations. No suspicious bony lesions. Very small plantar calcaneal enth esophyte. Soft tissues: No tibiotalar joint effusion. Achilles tendon appears normal. IMPRESSION: Small plantar calcaneal enthesopathy. No acute fracture or dislocation. If there is persistent clinical concern for a radiographically occult fracture, recommend immobilizat ion and repeat imaging in 10 to 14 days. Reviewed by: Hector Herman MD on 03/04/2020 6:40 PM PDT Approved by: Hector Herman MD on 03/04/2020 6:40 PM PDT Station ID: [id number]
--- NOTE | 2020-03-04 18:43 | XRAY Report ---
PROCEDURE: Ankle 3 View RT INDICATIONS: heel pain when stepping off curb TECHNIQUE: 3 views of the ankle were acquired. COMPARISON: None. FINDINGS: Bones: No acute fractures or dislocations. Tiny plantar calcaneal spur. Ankle mortise is normally a ligned. No suspicious bony lesions. Soft tissues: No tibiotalar joint effusion. Achilles tendon appears normal. Mild soft tissue swell ing of the ankle and forefoot. IMPRESSION: Right ankle without acute fracture or dislocation. Very small plantar calcaneal enthesophyte. If there is persistent clinical concern for a radiographically occult fracture, recommend immobilizat ion and repeat imaging in 10 to 14 days. Reviewed by: Hector Herman MD on 03/04/2020 6:41 PM PDT Approved by: Hector Herman MD on 03/04/2020 6:41 PM PDT Station ID: [id number]
[2020-03-04 18:44] VITALS: BP 120/74
== END 2020-03-04 19:06 | disposition home or self-care (01) ==
LOC: ED 16:51
DX: M79.671 Pain in right foot (principal); M25.571 Pain in right ankle and joints of right foot; M77.31 Calcaneal spur, right foot; Z87.828 Personal history of other (healed) physical injury and trauma; F17.200 Nicotine dependence, unspecified, uncomplicated
CPT/HCPCS: 73610; 73630; 99282; 99283; A9270

== ENCOUNTER 2020-06-26 21:05 | Outpatient (CLI) | payer MEDICAID | END 2020-06-26 21:06 | disposition home or self-care (01) | LOC: COV 21:05 | PROVIDERS: ATTEND Family Medicine | DX: R50.9 Fever, unspecified (principal); R06.02 Shortness of breath; R09.81 Nasal congestion; Z20.828 Contact with and (suspected) exposure to other viral communicable diseases ==

== ENCOUNTER 2021-09-25 08:22 | Emergency (ER) | payer MEDICAID ==
[2021-09-25 08:34] VITALS: BP 140/95
--- NOTE | 2021-09-25 08:38 | ED Physician Documentation ---
PD HPI HEENT - Stated complaint Stated Complaint: THROAT PX - Chief complaint Chief Complaint: Heent - History obtained from History obtained from: Patient - History of Present Illness Timing - onset: How many days ago (5) Timing - duration: Days (5) Timing - details: Gradual onset, Still present Location: Throat Improves: Medication Worsens: Swalllowing Associated symptoms: Congestion. No: Fever, Facial swelling, Cough Similar symptoms before: Diagnosis (strep pharyngitis) Recently seen: Not recently seen - Additional information Additional information: 35-year-old female with a prior history of strep pharyngitis has had her tonsils out twice. 5 days ago she developed some burning in the back of her throat [id number] came on suddenly and has persisted. She has a feeling of some swelling to the back of her throat when she swallows. She has not had cough she has not had fever. 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 She has been negative. Review of Systems Constitutional: denies: Fever Eyes: denies: Decreased vision Ears: denies: Ear pain Nose: reports: Congestion. 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: None, Ovarian cysts : None HEENT: None Psych: None Musculoskeletal: None Derm: None - Past Surgical History Past Surgical History: Yes /ISO COORDINATOR: section, Tubal ligation HEENT: Tonsil/Adenoidectomy - Present Medications Home Medications: Ambulatory Orders Medication Instructions Recorded Confirmed Azithromycin [Zithromax] 250 mg PO DAILY #6 tablet 09/25/21 - Allergies Allergies/Adverse Reactions: Allergies Allergy/AdvReac Type Severity Reaction Status Date / Time Cephalosporins Allergy Severe Respiratory Verified 09/25/21 08:32 hydromorphone HCl * Allergy Intermediate Hives Verified 09/25/21 08:32 [From Dilaudid] acetaminophen [From Vicodin] Allergy Rash Verified 09/25/21 08:32 hydrocodone [From Vicodin] Allergy Rash Verified 09/25/21 08:32 - Social History Does the pt smoke?: Yes Smoking Status: Current every day smoker Does the pt drink ETOH?: No Does the pt have substance abuse?: No - Immunizations Immunizations are current?: Yes - POLST Patient has POLST: No PD ED PE NORMAL - Vitals Vital signs reviewed: Yes (hypertensive ) - General General: Alert and oriented X 3, No acute distress, Well developed/nourished - HEENT HEENT: Atraumatic, PERRL, EOMI, Other (right TM is obscured by cerumen. left is clear. pharynx is with posterior swelling and exudate. 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, No motor deficit, No sensory deficit, Normal speech Eye Opening: Spontaneous Motor: Obeys Commands Verbal: Oriented GCS Score: 15 - Psych Psych: Normal mood, Normal affect Results - Vitals Vitals: Vital Signs - 24 hr 09/25/21 08:32 Temperature 37.1 C Heart Rate 81 Respiratory 19 Rate Blood Pressure 140/95 H O2 Saturation 98 Oxygen O2 Source Room air - Labs Labs: Laboratory Tests 09/25/21 08:29 Group A Strep Rapid Negative PD MEDICAL DECISION MAKING - ED course Complexity details: reviewed results, re-evaluated patient, considered differential, d/w patient ED course: 35-year-old female with swelling and exudate to the posterior pharynx has a prior history of strep pharyngitis and has had issues with her tonsils having to have them removed twice previously as a child. Today her strep screen is negative we will treat with azithromycin despite this. Culture is pending. Patient is administered dexamethasone 10 mg orally. Departure - Departure Disposition: 01 Home, Self Care Clinical Impression: Pharyngitis Qualifiers: Pharyngitis/tonsillitis etiology: unspecified etiology Qualified Code(s): J02.9 - Acute pharyngitis, unspecified Condition: Stable Instructions: ED Strep Pharyngitis Poss Follow-Up: CECILIA COLIN DO [Primary Care Provider] - Prescriptions: Azithromycin [Zithromax] 250 mg PO DAILY #6 tablet
[2021-09-25] MEDS ORDERED: DEXAMETHASONE 10 MG/ML VIAL PO STA (08:39)
[2021-09-25] MEDS ORDERED: CHERRY SYRUP 10 ML UDC PO ONE (08:39)
[2021-09-25 08:52] LABS: RAPID STREP SCREEN Negative (Negative)
== END 2021-09-25 09:32 | disposition home or self-care (01) ==
LOC: ED 08:22
DX: J02.9 Acute pharyngitis, unspecified (principal); F17.200 Nicotine dependence, unspecified, uncomplicated
CPT/HCPCS: 87070; 87430; 99282; 99283; A9270

== ENCOUNTER 2021-09-29 09:06 | Emergency (ER) | payer MEDICAID ==
[2021-09-29 09:23] VITALS: BP 136/75
--- NOTE | 2021-09-29 09:33 | ED Physician Documentation ---
PD HPI HEENT - Stated complaint Stated Complaint: FEVER,COUGH - Chief complaint Chief Complaint: Heent - History obtained from History obtained from: Patient - History of Present Illness Timing - onset: How many days ago (6) Timing - duration: Days (6) Timing - details: Gradual onset, Still present Location: Throat Improves: Medication Worsens: Swalllowing Associated symptoms: Congestion, Swollen nodes, Cough Similar symptoms before: Diagnosis (strep) Recently seen: Emergency Dept - Additional information Additional information: 35-year-old female seen 4 days ago for a sore throat had a strep screen done which was negative it did grow out 2+ beta-hemolytic strep. She was placed on 2 azithromycin as she is allergic to cephalosporins. She does indicate to me that she has taken amoxicillin a number of times previously and does not have a problem with amoxicillin. We will place her onto amoxicillin today. She is given a second dose of dexamethasone here in the emergency department and we will excuse her from work for 3 days.She does work in a [employer] center and is testing negative. Review of Systems Constitutional: reports: Fever Eyes: denies: Decreased vision Ears: denies: Ear pain Nose: reports: Rhinorrhea / runny nose, Congestion Throat: reports: Sore throat Cardiac: denies: Chest pain / pressure, Palpitations Respiratory: reports: Cough. denies: Dyspnea PD PAST MEDICAL HISTORY - Past Medical History Cardiovascular: None Respiratory: Asthma Neuro: None Endocrine/Autoimmune: None GI: GERD STATE EDITOR: None, Ovarian cysts : None HEENT: None Psych: None Musculoskeletal: None Derm: None - Past Surgical History Past Surgical History: Yes /STATE EDITOR: section, Tubal ligation HEENT: Tonsil/Adenoidectomy - Present Medications Home Medications: Ambulatory Orders Medication Instructions Recorded Confirmed Azithromycin [Zithromax] 250 mg PO DAILY #6 tablet 09/25/21 Amoxicillin 875 mg PO BID #20 tablet 09/29/21 - Allergies Allergies/Adverse Reactions: Allergies Allergy/AdvReac Type Severity Reaction Status Date / Time Cephalosporins Allergy Severe Respiratory Verified 09/29/21 09:23 hydromorphone HCl * Allergy Intermediate Hives Verified 09/29/21 09:23 [From Dilaudid] acetaminophen [From Vicodin] Allergy Rash Verified 09/29/21 09:23 hydrocodone [From Vicodin] Allergy Rash Verified 09/29/21 09:23 - Social History Does the pt smoke?: Yes Smoking Status: Current every day smoker Does the pt drink ETOH?: No Does the pt have substance abuse?: No - Immunizations Immunizations are current?: Yes - POLST Patient has POLST: No PD ED PE NORMAL - Vitals Vital signs reviewed: Yes (Hypertensive) - General General: Alert and oriented X 3, No acute distress, Well developed/nourished - HEENT HEENT: Atraumatic, PERRL, EOMI, Other (Right TM is occluded by cerumen left is clear pharynx is with mild generalized erythema minimal exudate) - Neck Neck: Supple, no meningeal sign, No bony TTP, Other (Shotty adenopathy bilaterally) - Respiratory Respiratory: No respiratory distress, Clear bilaterally - Abdomen Abdomen: Soft, Non tender - Back Back: No CVA TTP, No spinal TTP - Derm Derm: Normal color, Warm and dry, No rash - Extremities Extremities: No deformity, No edema - Neuro Neuro: Alert and oriented X 3, access tech 2-12 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, No motor deficit, No sensory deficit, Normal speech Eye Opening: Spontaneous Motor: Obeys Commands Verbal: Oriented GCS Score: 15 - Psych Psych: Normal mood, Normal affect Results - Vitals Vitals: Vital Signs - 24 hr 09/29/21 09:19 Temperature 36.5 C Heart Rate 82 Respiratory 17 Rate Blood Pressure 136/75 H O2 Saturation 98 Oxygen O2 Source Room air PD MEDICAL DECISION MAKING - ED course Complexity details: reviewed old records, reviewed results, re-evaluated patient, considered differential, d/w patient ED course: 35-year-old female has strep pharyngitis and she has failed treatment with a azithromycin. She does indicate to me that she is not allergic to amoxicillin we will put her on amoxicillin today. We have given her a second dose of dexamethasone. We will excuse her from work for 3 days. Departure - Departure Disposition: 01 Home, Self Care Clinical Impression: Strep pharyngitis Condition: Stable Instructions: ED Strep Pharyngitis Conf Follow-Up: CECILIA COLIN DO [Primary Care Provider] - Prescriptions: Amoxicillin 875 mg PO BID #20 tablet Forms: Activity restrictions
[2021-09-29] MEDS ORDERED: DEXAMETHASONE 10 MG/ML VIAL PO STA (09:38)
[2021-09-29] MEDS ORDERED: CHERRY SYRUP 10 ML UDC PO ONE (09:38)
== END 2021-09-29 09:57 | disposition home or self-care (01) ==
LOC: ED 09:06
DX: J02.0 Streptococcal pharyngitis (principal); F17.200 Nicotine dependence, unspecified, uncomplicated
CPT/HCPCS: 99282; A9270

== ENCOUNTER 2022-06-27 17:00 | Emergency (ER) | payer MEDICAID ==
--- NOTE | 2022-06-27 17:46 | XRAY Report ---
PROCEDURE: Chest 2 View X-Ray INDICATIONS: cough TECHNIQUE: 2 views of the chest were acquired. COMPARISON: 11/10/2017 FINDINGS: No focal infiltrates are seen. No pneumothorax or pleural effusions are seen. Cardiac and mediastinal silhouettes are within normal limits. No significant soft tissue abnormality is seen. No significant bony abnormality is seen. No postoperative changes are seen. IMPRESSION: No focal infiltrates are seen. Unremarkable chest plain films. Reviewed by: Noble uMrphy MD on 06/27/2022 4:45 PM [facility] Approved by: Noble Murphy MD on 06/27/2022 4:45 PM [facility] Station ID: [id number]
[2022-06-27] MEDS ORDERED: AMOX/CLAV 875 MG/125 MG TABLET PO STA (19:36)
--- NOTE | 2022-06-27 19:38 | ED Physician Documentation ---
PD HPI HEENT - Stated complaint Stated Complaint: EAR PX & CHEST TIGHTNESS - Chief complaint Chief Complaint: Heent - History obtained from History obtained from: Patient - Additional information Additional information: Otherwise healthy 36-year-old woman developed symptomatic influenza 6 days ago after being exposed by her son. She had 3 days of significant body aches, fever, myalgias and chills and headache. Subsequently was getting better but over the last couple of days has developed sinus pain and severe right-sided earache but declines prescription pain medication for same. 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, Tubal ligation HEENT: Tonsil/Adenoidectomy - Present Medications Home Medications: Ambulatory Orders Medication Instructions Recorded Confirmed Azithromycin [Zithromax] 250 mg PO DAILY #6 tablet 09/25/21 Amoxicillin 875 mg PO BID #20 tablet 09/29/21 Amox/Clav 875/125 [Augmentin] 1 each PO Q12H #20 tablet 06/27/22 - Allergies Allergies/Adverse Reactions: Allergies Allergy/AdvReac Type Severity Reaction Status Date / Time Cephalosporins Allergy Severe Respiratory Verified 06/27/22 17:15 hydromorphone HCl * Allergy Intermediate Hives Verified 06/27/22 17:15 [From Dilaudid] acetaminophen [From Vicodin] Allergy Rash Verified 06/27/22 17:15 hydrocodone [From Vicodin] Allergy Rash Verified 06/27/22 17:15 - Social History Does the pt smoke?: Yes Smoking Status: Current every day smoker Does the pt drink ETOH?: No Does the pt have substance abuse?: No - Immunizations Immunizations are current?: Yes - POLST Patient has POLST: No PD ED PE NORMAL - Vitals Vital signs reviewed: Yes - General General: Alert and oriented X 3, No acute distress - HEENT HEENT: PERRL, EOMI, Pharynx benign, Other (On initial exam unable to visualize the right TM, left TM is normal. The right TM is occluded by cerumen. After clearing the cerumen I am able to identify severe right otitis media. She does have severe maxillary sinus tenderness bilaterally as well.) - Neck Neck: Supple, no meningeal sign, No bony TTP - Cardiac Cardiac: RRR, No murmur - Respiratory Respiratory: No respiratory distress, Clear bilaterally - Abdomen Abdomen: Soft, Non tender - Back Back: No CVA TTP, No spinal TTP - Derm Derm: Normal color, Warm and dry - Extremities Extremities: No edema, No calf tenderness / cord Results - Vitals Vitals: Vital Signs - 24 hr 06/27/22 06/27/22 17:15 19:26 Temperature 36.7 C 36.3 C L Heart Rate 83 81 Respiratory 20 16 Rate Blood Pressure 141/94 H 145/90 H O2 Saturation 100 100 Oxygen O2 Source Room air - EKG (time done) 1821 Rate: Rate (enter#) (83) Rhythm: NSR [place]: Normal Intervals: Normal [place] QRS: Low voltage Ischemia: Normal ST segments. No: ST elevation c/w ischemia, ST depression Computer interpretation: Disagree with computer PD MEDICAL DECISION MAKING - ED course ED course: Ancillary complaint of chest pain associated with cough, 2 view chest x-ray interpreted contemporaneously by me and EKG were unremarkable. Departure - Departure Disposition: 01 Home, Self Care Clinical Impression: Right otitis media Qualifiers: Otitis media type: suppurative Chronicity: acute Recurrence: non-recurrent Spontaneous tympanic membrane rupture: without spontaneous rupture Qualified Code(s): H66.001 - Acute suppurative otitis media without spontaneous rupture of ear drum, right ear Sinusitis Qualifiers: Sinusitis location: maxillary Chronicity: acute Recurrence: non-recurrent Qualified Code(s): J01.00 - Acute maxillary sinusitis, unspecified Condition: Good Record reviewed to determine appropriate education?: Yes Instructions: ED Sinusitis Abx Tx, ED Otitis Media Acute Adult Prescriptions: Amox/Clav 875/125 [Augmentin] 1 each PO Q12H #20 tablet Comments: I sent your prescription electronically to [facility] in [place]. Call your doctor to arrange a follow-up appointment, make the next available appointment. In the interim, return anytime if worse or if new symptoms develop.
[2022-06-27 19:43] VITALS: BP 144/88
== END 2022-06-27 19:44 | disposition home or self-care (01) ==
LOC: ED 17:00
DX: H66.001 Acute suppurative otitis media without spontaneous rupture of ear drum, right ear (principal); J01.00 Acute maxillary sinusitis, unspecified; F17.200 Nicotine dependence, unspecified, uncomplicated
CPT/HCPCS: 71046; 93005; 99283; A9270

== ENCOUNTER 2022-10-26 00:57 | Emergency (ER) | payer MEDICAID ==
--- OUTSIDE RECORDS SUMMARY | 2022-10-26 01:10 | EXTERNAL MEDICAL SUMMARY RPT | Continuity of Care Document ---
:1985 Author Organization [facility] Address [address] [place] [address] Phone Care Team Providers Name Role Phone Thad Morales Unavailable Unavailable Allergies No information. Encounters No information. Functional Status No information. Immunizations No information. Medications date description facility 2022-09-08 00:00 Fluticasone Propionate [facility] 2022-09-08 00:00 Epinephrine [facility] 2022-09-08 00:00 Albuterol Sulfate [facility] 2022-09-08 00:00 Sumatriptan Succinate [facility] 2022-09-01 00:00 Propranolol [facility] 2022-09-08 00:00 Propranolol [facility] 2022-09-08 00:00 Bupropion Hcl [facility] 2022-09-08 00:00 Bupropion Hcl [facility] Problems date description facility 2022-09-08 00:00 Attention deficit disorder (ADD) in karlee lt [facility] 2022-09-09 09:01 Major depressive disorder, recurrent se [facility] without psychoti 2022-09-09 09:01 Other specified behavioral and emotiona l [facility] disorders with onse 2022-09-09 09:01 Mild intermittent asthma, [facility] 2022-09-09 09:09 Other recurrent depressive disorders [facility] 2022-09-09 09:09 Migraine with aura, not intractable, [facility] status migraino 2022-09-09 09:09 Mild intermittent asthma, uncomplicated [facility] 2022-09-09 09:09 Epigastric pain [facility] 2022-09-09 09:39 Other recurrent depressive disorders [facility] 2022-09-09 09:39 Migraine with aura, not intractable, [facility] status migraino 2022-09-09 09:39 Mild intermittent asthma, [facility] 2022-09-09 09:39 Epigastric pain [facility] Procedures No information. Results/Labs test date author facility value unit interpret ation Result panel 1 (unknown) (no (unknown) (unknown) (no value) (units (unk nown) date) unknown) (unknown) (no (unknown) (unknown) [id number] (units (unkn own) date) unknown) (unknown) (no (unknown) (unknown) 09/08/22 (units (unkno wn) date) unknown) (unknown) (no (unknown) (unknown) 36 yo female (units (u nknown) date) presents today unknown) for anxiety and med review. (unknown) (no (unknown) (unknown) Achilles tendon (units (unknown) date) injury unknown) (unknown) (no (unknown) (unknown) Acute maxillary (units (unknown) date) sinusitis unknown) (unknown) (no (unknown) (unknown) Age/Sex: 36 / F (units (unknown) date) Date of Service: unknown) (unknown) (no (unknown) (unknown) Allergies (units (unkn own) date) unknown) (unknown) (no (unknown) (unknown) [place] (units ( unknown) date) [id number] unknown) (unknown) (no (unknown) (unknown) Asthma (units (unkno wn) date) unknown) (unknown) (no (unknown) (unknown) Attending Dr: (units ( unknown) date) Thad Morales unknown) D.O. (unknown) (no (unknown) (unknown) Cephalosporins (units (unknown) date) [CEPHALOSPORINS] unknown) Allergy (Intermediate, Verified 03/25/22 16:19) (unknown) (no (unknown) (unknown) : 1985 (units (unknown) date) Acct:[id number] unknown) (unknown) (no (unknown) (unknown) Dept at (units (unkno wn) date) . unknown) (unknown) (no (unknown) (unknown) Documented By: (units (unknown) date) Thad Morales unknown) D.O. 09/08/22 0990 (unknown) (no (unknown) (unknown) Draft (units (unkno wn) date) unknown) (unknown) (no (unknown) (unknown) Epigastric (units (unk nown) date) discomfort unknown) (unknown) (no (unknown) (unknown) Family Practice (units (unknown) date) Office Visit unknown) (unknown) (no (unknown) (unknown) [facility]units ([facility] unknown) (unknown) (no (unknown) (unknown) Intake Note: (units (u nknown) date) unknown) (unknown) (no (unknown) (unknown) Intake performed (units (unknown) date) by: Roseanne Berry unknown) (unknown) (no (unknown) (unknown) Intake (units (unkno wn) date) unknown) (unknown) (no (unknown) (unknown) Intake- Clincial (units (unknown) date) Staff unknown) (unknown) (no (unknown) (unknown) Loc: [facility] (units (unkno wn) date) unknown) (unknown) (no (unknown) (unknown) Medical History (units (unknown) date) (Updated 03/25/22 unknown) @ 17:48 by Thad Morales DO) (unknown) (no (unknown) (unknown) Migraine with (units ( unknown) date) acute onset aura unknown) (unknown) (no (unknown) (unknown) PFSH (units (unkno wn) date) unknown) (unknown) (no (unknown) (unknown) Patient: (units (unkno wn) date) PreethiChinyere Sina unknown) MR#: M (unknown) (no (unknown) (unknown) Reason For Visit (units (unknown) date) unknown) (unknown) (no (unknown) (unknown) Seasonal (units (unkno wn) date) affective unknown) disorder (unknown) (no (unknown) (unknown) Signed By: (units (unk nown) date) unknown) (unknown) (no (unknown) (unknown) Smoking Status: (units (unknown) date) Current some day unknown) smoker (1 pack per week.) (unknown) (no (unknown) (unknown) Status post (units (un known) date) delivery unknown) (09/18/13) (unknown) (no (unknown) (unknown) Status post (units (un known) date) tubal ligation unknown) (09/18/13) (unknown) (no (unknown) (unknown) Surgical History (units (unknown) date) (Reviewed unknown) 03/25/22 @ 17:46 by Thad Morales DO) (unknown) (no (unknown) (unknown) This note may (units ( unknown) date) have been all or unknown) partially generated using voice recognition (unknown) (no (unknown) (unknown) Tobacco + (units (unkn own) date) Substance Use unknown) (unknown) (no (unknown) (unknown) Tobacco Status (units (unknown) date) unknown) (unknown) (no (unknown) (unknown) Tobacco: How (units (u nknown) date) many years used: unknown) 6 (unknown) (no (unknown) (unknown) Visit Reasons: (units (unknown) date) Anxiety; med unknown) review 01 (unknown) (no (unknown) (unknown) alcohol intake: (units (unknown) date) current (-once unknown) every other week ) (unknown) (no (unknown) (unknown) have occurred. (units (unknown) date) If there are any unknown) questions, please contact the Medical Records (unknown) (no (unknown) (unknown) hydrocodone (units (un known) date) [From Vicodin] unknown) Allergy (Severe, Verified 03/25/22 16:19) (unknown) (no (unknown) (unknown) hydromorphone (units ( unknown) date) [From DILAUDID] unknown) Allergy (Intermediate, Verified 03/25/22 16:19) (unknown) (no (unknown) (unknown) may occur. (units (unk nown) date) Occasional unknown) wrong-word or 'sound-alike' substitutions may have (unknown) (no (unknown) (unknown) occurred due to (units (unknown) date) the inherent unknown) limitations of voice recognition software. Please (unknown) (no (unknown) (unknown) quit status: not (units (unknown) date) considering unknown) quitting (unknown) (no (unknown) (unknown) rash, headaches, (units (unknown) date) 'start breathing unknown) weird' (unknown) (no (unknown) (unknown) read the note (units ( unknown) date) carefully and unknown) recognize, using context, where these substitutions (unknown) (no (unknown) (unknown) software. (units (unkn own) date) Although every unknown) effort is made to edit content, manager valuation errors (unknown) (no (unknown) (unknown) substance use (units ( unknown) date) type: does not unknown) use (unknown) (no (unknown) (unknown) topiramate [From (units (unknown) date) Topamax] Adverse unknown) Reaction (Severe, Verified 03/25/22 16:19) (unknown) (no (unknown) (unknown) very angry (units (unk nown) date) unknown) Result panel 2 (unknown) (no (unknown) (unknown) (no value) (units (unk nown) date) unknown) (unknown) (no (unknown) (unknown) [id number] (units (unkn own) date) unknown) (unknown) (no (unknown) (unknown) 09/08/22 (units (unkno wn) date) unknown) (unknown) (no (unknown) (unknown) 03/25/22 [Rx (units (u nknown) date) Confirmed unknown) 09/08/22] (unknown) (no (unknown) (unknown) 09:47 (units (unkno wn) date) unknown) (unknown) (no (unknown) (unknown) 36 yo female (units (u nknown) date) presents today unknown) for anxiety and med review. Pt states she has (unknown) (no (unknown) (unknown) Achilles tendon (units (unknown) date) injury unknown) (unknown) (no (unknown) (unknown) Acute maxillary (units (unknown) date) sinusitis unknown) (unknown) (no (unknown) (unknown) Age/Sex: 36 / F (units (unknown) date) Date of Service: unknown) (unknown) (no (unknown) (unknown) Allergies (units (unkn own) date) unknown) (unknown) (no (unknown) (unknown) [place], [place] (units ( unknown) date) [id number] unknown) (unknown) (no (unknown) (unknown) Asthma (units (unkno wn) date) unknown) (unknown) (no (unknown) (unknown) Attending Dr: (units ( unknown) date) Thad Morales unknown) D.O. (unknown) (no (unknown) (unknown) BMI 41.1 (units (unkno wn) date) unknown) (unknown) (no (unknown) (unknown) BP 118/82 (units (unkn own) date) unknown) (unknown) (no (unknown) (unknown) Blood Pressure (units (unknown) date) Location Lt unknown) brachial (unknown) (no (unknown) (unknown) Cephalosporins (units (unknown) date) [CEPHALOSPORINS] unknown) Allergy (Intermediate, Verified 03/25/22 16:19) (unknown) (no (unknown) (unknown) : 1985 (units (unknown) date) Acct:[id number] unknown) (unknown) (no (unknown) (unknown) Dept at (units (unkno wn) date) . unknown) (unknown) (no (unknown) (unknown) Documented By: (units (unknown) date) Thad Morales unknown) D.O. 09/08/22 0933 (unknown) (no (unknown) (unknown) Draft (units (unkno wn) date) unknown) (unknown) (no (unknown) (unknown) Epigastric (units (unk nown) date) discomfort unknown) (unknown) (no (unknown) (unknown) Family Practice (units (unknown) date) Office Visit unknown) (unknown) (no (unknown) (unknown) [facility] (units ([facility] date[facility] unknown) (unknown) (no (unknown) (unknown) Height 5 ft 5 in (units (unknown) date) unknown) (unknown) (no (unknown) (unknown) Intake Note: (units (u nknown) date) unknown) (unknown) (no (unknown) (unknown) Intake performed (units (unknown) date) by: Roseanne Berry unknown) (unknown) (no (unknown) (unknown) Intake (units (unkno wn) date) unknown) (unknown) (no (unknown) (unknown) Intake- Clincial (units (unknown) date) Staff unknown) (unknown) (no (unknown) (unknown) Loc: [facility] (units (unkno wn) date) unknown) (unknown) (no (unknown) (unknown) Medical History (units (unknown) date) (Updated 03/25/22 unknown) @ 17:48 by Thad Morales DO) (unknown) (no (unknown) (unknown) Medications (units (un known) date) unknown) (unknown) (no (unknown) (unknown) Migraine with (units ( unknown) date) acute onset aura unknown) (unknown) (no (unknown) (unknown) Oxygen Delivery (units (unknown) date) Method room air unknown) (unknown) (no (unknown) (unknown) PFSH (units (unkno wn) date) unknown) (unknown) (no (unknown) (unknown) Patient: (units (unkno wn) date) Chinyere Oro unknown) MR#: M (unknown) (no (unknown) (unknown) Position Sitting (units (unknown) date) unknown) (unknown) (no (unknown) (unknown) Pulse 89 (units (unkno wn) date) unknown) (unknown) (no (unknown) (unknown) Pulse Oximetry (units (unknown) date) (%) 98 unknown) (unknown) (no (unknown) (unknown) Pulse Source (units (u nknown) date) Monitor unknown) (unknown) (no (unknown) (unknown) Reason For Visit (units (unknown) date) unknown) (unknown) (no (unknown) (unknown) Seasonal (units (unkno wn) date) affective unknown) disorder (unknown) (no (unknown) (unknown) Signed By: (units (unk nown) date) unknown) (unknown) (no (unknown) (unknown) Smoking Status: (units (unknown) date) Current some day unknown) smoker (1 pack per week.) (unknown) (no (unknown) (unknown) Status post (units (un known) date) delivery unknown) (09/18/13) (unknown) (no (unknown) (unknown) Status post (units (un known) date) tubal ligation unknown) (09/18/13) (unknown) (no (unknown) (unknown) Surgical History (units (unknown) date) (Reviewed unknown) 03/25/22 @ 17:46 by Thad Morales DO) (unknown) (no (unknown) (unknown) This note may (units ( unknown) date) have been all or unknown) partially generated using voice recognition (unknown) (no (unknown) (unknown) Tobacco + (units (unkn own) date) Substance Use unknown) (unknown) (no (unknown) (unknown) Tobacco Status (units (unknown) date) unknown) (unknown) (no (unknown) (unknown) Tobacco: How (units (u nknown) date) many years used: unknown) 6 (unknown) (no (unknown) (unknown) Visit Reasons: (units (unknown) date) Anxiety; med unknown) review 01 (unknown) (no (unknown) (unknown) Vitals (units (unkno wn) date) unknown) (unknown) (no (unknown) (unknown) Weight 247 lb 6 (units (unknown) date) oz unknown) (unknown) (no (unknown) (unknown) albuterol (units (unkn own) date) sulfate 90 unknown) mcg/actuation aerosol inhaler (Proventil HFA) 2 puff (unknown) (no (unknown) (unknown) alcohol intake: (units (unknown) date) current (-once unknown) every other week ) (unknown) (no (unknown) (unknown) epinephrine 0.3 (units (unknown) date) mg/0.3 mL unknown) injection, auto-injector (EpiPen 2-Derek) 0.3 mg (0.3 (unknown) (no (unknown) (unknown) fluticasone (units (un known) date) propionate 50 unknown) mcg/actuation nasal spray,suspension 1 spray (unknown) (no (unknown) (unknown) have occurred. (units (unknown) date) If there are any unknown) questions, please contact the Medical Records (unknown) (no (unknown) (unknown) hydrocodone (units (un known) date) [From Vicodin] unknown) Allergy (Severe, Verified 03/25/22 16:19) (unknown) (no (unknown) (unknown) hydromorphone (units ( unknown) date) [From DILAUDID] unknown) Allergy (Intermediate, Verified 03/25/22 16:19) (unknown) (no (unknown) (unknown) inhalation Q6HP (units (unknown) date) ##8.5 03/25/22 unknown) [Rx Confirmed 09/08/22] (unknown) (no (unknown) (unknown) intranasal Q12H (units (unknown) date) PRN allergy unknown) symptoms #16 mL 03/25/22 [Rx Confirmed 09/08/22] (unknown) (no (unknown) (unknown) mL) IM ONCE #2 (units (unknown) date) ea 03/25/22 [Rx unknown) Confirmed 09/08/22] (unknown) (no (unknown) (unknown) may occur. (units (unk nown) date) Occasional unknown) wrong-word or 'sound-alike' substitutions may have (unknown) (no (unknown) (unknown) more since her (units (unknown) date) children got unknown) older x past 3 years. (unknown) (no (unknown) (unknown) occurred due to (units (unknown) date) the inherent unknown) limitations of voice recognition software. Please (unknown) (no (unknown) (unknown) problems (units (unkno wn) date) focusing at work unknown) and home. States it's been a past problem, noticed (unknown) (no (unknown) (unknown) propranolol 10 (units (unknown) date) mg tablet 10 mg unknown) PO TID #90 tabs 09/01/22 [Rx Confirmed 09/08/22] (unknown) (no (unknown) (unknown) quit status: not (units (unknown) date) considering unknown) quitting (unknown) (no (unknown) (unknown) rash, headaches, (units (unknown) date) 'start breathing unknown) weird' (unknown) (no (unknown) (unknown) read the note (units ( unknown) date) carefully and unknown) recognize, using context, where these substitutions (unknown) (no (unknown) (unknown) software. (units (unkn own) date) Although every unknown) effort is made to edit content, manager valuation errors (unknown) (no (unknown) (unknown) substance use (units ( unknown) date) type: does not unknown) use (unknown) (no (unknown) (unknown) sumatriptan (units (un known) date) succinate 100 mg unknown) tablet See Rx Instructions PO .COMPLEX #7 tabs (unknown) (no (unknown) (unknown) topiramate [From (units (unknown) date) Topamax] Adverse unknown) Reaction (Severe, Verified 03/25/22 16:19) (unknown) (no (unknown) (unknown) very angry (units (unk nown) date) unknown) Result panel 3 (unknown) (no (unknown) (unknown) (no value) (units (unk nown) date) unknown) (unknown) (no (unknown) (unknown) (1) Severe (units (unk nown) date) episode of unknown) recurrent major depressive disorder, without psychotic (unknown) (no (unknown) (unknown) (2) Asthma: (units (un known) date) unknown) (unknown) (no (unknown) (unknown) [id number] (units (unkn own) date) unknown) (unknown) (no (unknown) (unknown) 09/08/22 (units (unkno wn) date) unknown) (unknown) (no (unknown) (unknown) 03/25/22 [Rx (units (u nknown) date) Confirmed unknown) 09/08/22] (unknown) (no (unknown) (unknown) 09:47 (units (unkno wn) date) unknown) (unknown) (no (unknown) (unknown) 36 yo female (units (u nknown) date) presents today unknown) for anxiety and med review. Pt states she has (unknown) (no (unknown) (unknown) Achilles tendon (units (unknown) date) injury unknown) (unknown) (no (unknown) (unknown) Acute maxillary (units (unknown) date) sinusitis unknown) (unknown) (no (unknown) (unknown) Age/Sex: 36 / F (units (unknown) date) Date of Service: unknown) (unknown) (no (unknown) (unknown) Allergies (units (unkn own) date) unknown) (unknown) (no (unknown) (unknown) [place], [place] (units ( unknown) date) [id number] unknown) (unknown) (no (unknown) (unknown) Assessment + (units (u nknown) date) Plan unknown) (unknown) (no (unknown) (unknown) Asthma severity: (units (unknown) date) mild Asthma unknown) persistence: intermittent Asthma (unknown) (no (unknown) (unknown) Asthma (units (unkno wn) date) unknown) (unknown) (no (unknown) (unknown) Attending Dr: (units ( unknown) date) Thad Morales unknown) D.O. (unknown) (no (unknown) (unknown) BMI 41.1 (units (unkno wn) date) unknown) (unknown) (no (unknown) (unknown) BP 118/82 (units (unkn own) date) unknown) (unknown) (no (unknown) (unknown) Blood Pressure (units (unknown) date) Location Lt unknown) brachial (unknown) (no (unknown) (unknown) Cephalosporins (units (unknown) date) [CEPHALOSPORINS] unknown) Allergy (Intermediate, Verified 03/25/22 16:19) (unknown) (no (unknown) (unknown) : 1985 (units (unknown) date) Acct:[id number] unknown) (unknown) (no (unknown) (unknown) Dept at (units (unkno wn) date) . unknown) (unknown) (no (unknown) (unknown) Documented By: (units (unknown) date) Thad Morales unknown) D.O. 09/08/22 0933 (unknown) (no (unknown) (unknown) Draft (units (unkno wn) date) unknown) (unknown) (no (unknown) (unknown) Epigastric (units (unk nown) date) discomfort unknown) (unknown) (no (unknown) (unknown) Family Practice (units (unknown) date) Office Visit unknown) (unknown) (no (unknown) (unknown) [facility] (units (unknown[facility] date) [facility] unknown) (unknown) (no (unknown) (unknown) Height 5 ft 5 in (units (unknown) date) unknown) (unknown) (no (unknown) (unknown) Intake Note: (units (u nknown) date) unknown) (unknown) (no (unknown) (unknown) Intake performed (units (unknown) date) by: Roseanne Berry unknown) (unknown) (no (unknown) (unknown) Intake (units (unkno wn) date) unknown) (unknown) (no (unknown) (unknown) Intake- Clincial (units (unknown) date) Staff unknown) (unknown) (no (unknown) (unknown) Loc: [facility] (units (unkno wn) date) unknown) (unknown) (no (unknown) (unknown) Medical History (units (unknown) date) (Updated 03/25/22 unknown) @ 17:48 by Thad Morales DO) (unknown) (no (unknown) (unknown) Medications (units (un known) date) unknown) (unknown) (no (unknown) (unknown) Migraine with (units ( unknown) date) acute onset aura unknown) (unknown) (no (unknown) (unknown) Oxygen Delivery (units (unknown) date) Method room air unknown) (unknown) (no (unknown) (unknown) PFSH (units (unkno wn) date) unknown) (unknown) (no (unknown) (unknown) Patient: (units (unkno wn) date) Chinyere Oro unknown) MR#: M (unknown) (no (unknown) (unknown) Position Sitting (units (unknown) date) unknown) (unknown) (no (unknown) (unknown) Pulse 89 (units (unkno wn) date) unknown) (unknown) (no (unknown) (unknown) Pulse Oximetry (units (unknown) date) (%) 98 unknown) (unknown) (no (unknown) (unknown) Pulse Source (units (u nknown) date) Monitor unknown) (unknown) (no (unknown) (unknown) Qualifiers: (units (un known) date) unknown) (unknown) (no (unknown) (unknown) Reason For Visit (units (unknown) date) unknown) (unknown) (no (unknown) (unknown) Seasonal (units (unkno wn) date) affective unknown) disorder (unknown) (no (unknown) (unknown) Signed By: (units (unk nown) date) unknown) (unknown) (no (unknown) (unknown) Smoking Status: (units (unknown) date) Current some day unknown) smoker (1 pack per week.) (unknown) (no (unknown) (unknown) Status post (units (un known) date) delivery unknown) (09/18/13) (unknown) (no (unknown) (unknown) Status post (units (un known) date) tubal ligation unknown) (09/18/13) (unknown) (no (unknown) (unknown) Status: Acute (units ( unknown) date) unknown) (unknown) (no (unknown) (unknown) Status: None (units (u nknown) date) unknown) (unknown) (no (unknown) (unknown) Surgical History (units (unknown) date) (Reviewed unknown) 03/25/22 @ 17:46 by Thad Morales DO) (unknown) (no (unknown) (unknown) This note may (units ( unknown) date) have been all or unknown) partially generated using voice recognition (unknown) (no (unknown) (unknown) Tobacco + (units (unkn own) date) Substance Use unknown) (unknown) (no (unknown) (unknown) Tobacco Status (units (unknown) date) unknown) (unknown) (no (unknown) (unknown) Tobacco: How (units (u nknown) date) many years used: unknown) 6 (unknown) (no (unknown) (unknown) Visit Reasons: (units (unknown) date) Anxiety; med unknown) review 01 (unknown) (no (unknown) (unknown) Vitals (units (unkno wn) date) unknown) (unknown) (no (unknown) (unknown) Weight 247 lb 6 (units (unknown) date) oz unknown) (unknown) (no (unknown) (unknown) albuterol (units (unkn own) date) sulfate 90 unknown) mcg/actuation aerosol inhaler (Proventil HFA) 2 puff (unknown) (no (unknown) (unknown) alcohol intake: (units (unknown) date) current (-once unknown) every other week ) (unknown) (no (unknown) (unknown) asthma, (units (unkno wn) date) uncomplicated unknown) (unknown) (no (unknown) (unknown) complication (units (u nknown) date) type: unknown) uncomplicated Qualified Code(s): J45.20 - Mild intermittent (unknown) (no (unknown) (unknown) epinephrine 0.3 (units (unknown) date) mg/0.3 mL unknown) injection, auto-injector (EpiPen 2-Derek) 0.3 mg (0.3 (unknown) (no (unknown) (unknown) features: (units (unkn own) date) unknown) (unknown) (no (unknown) (unknown) fluticasone (units (un known) date) propionate 50 unknown) mcg/actuation nasal spray,suspension 1 spray (unknown) (no (unknown) (unknown) have occurred. (units (unknown) date) If there are any unknown) questions, please contact the Medical Records (unknown) (no (unknown) (unknown) hydrocodone (units (un known) date) [From Vicodin] unknown) Allergy (Severe, Verified 03/25/22 16:19) (unknown) (no (unknown) (unknown) hydromorphone (units ( unknown) date) [From DILAUDID] unknown) Allergy (Intermediate, Verified 03/25/22 16:19) (unknown) (no (unknown) (unknown) inhalation Q6HP (units (unknown) date) ##8.5 03/25/22 unknown) [Rx Confirmed 09/08/22] (unknown) (no (unknown) (unknown) intranasal Q12H (units (unknown) date) PRN allergy unknown) symptoms #16 mL 03/25/22 [Rx Confirmed 09/08/22] (unknown) (no (unknown) (unknown) mL) IM ONCE #2 (units (unknown) date) ea 03/25/22 [Rx unknown) Confirmed 09/08/22] (unknown) (no (unknown) (unknown) may occur. (units (unk nown) date) Occasional unknown) wrong-word or 'sound-alike' substitutions may have (unknown) (no (unknown) (unknown) more since her (units (unknown) date) children got unknown) older x past 3 years. (unknown) (no (unknown) (unknown) occurred due to (units (unknown) date) the inherent unknown) limitations of voice recognition software. Please (unknown) (no (unknown) (unknown) problems (units (unkno wn) date) focusing at work unknown) and home. States it's been a past problem, noticed (unknown) (no (unknown) (unknown) propranolol 10 (units (unknown) date) mg tablet 10 mg unknown) PO TID #90 tabs 09/01/22 [Rx Confirmed 09/08/22] (unknown) (no (unknown) (unknown) quit status: not (units (unknown) date) considering unknown) quitting (unknown) (no (unknown) (unknown) rash, headaches, (units (unknown) date) 'start breathing unknown) weird' (unknown) (no (unknown) (unknown) read the note (units ( unknown) date) carefully and unknown) recognize, using context, where these substitutions (unknown) (no (unknown) (unknown) software. (units (unkn own) date) Although every unknown) effort is made to edit content, manager valuation errors (unknown) (no (unknown) (unknown) substance use (units ( unknown) date) type: does not unknown) use (unknown) (no (unknown) (unknown) sumatriptan (units (un known) date) succinate 100 mg unknown) tablet See Rx Instructions PO .COMPLEX #7 tabs (unknown) (no (unknown) (unknown) topiramate [From (units (unknown) date) Topamax] Adverse unknown) Reaction (Severe, Verified 03/25/22 16:19) (unknown) (no (unknown) (unknown) very angry (units (unk nown) date) unknown) Result panel 4 (unknown) (no (unknown) (unknown) (no value) (units (unk nown) date) unknown) (unknown) (no (unknown) (unknown) (1) 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, without psychotic (unknown) (no (unknown) (unknown) (2) Asthma: (units (un known) date) unknown) (unknown) (no (unknown) (unknown) [id number] (units (unkn own) date) unknown) (unknown) (no (unknown) (unknown) 09/08/22 1024 (units ( unknown) date) unknown) (unknown) (no (unknown) (unknown) 09/08/22 [Rx (units (u nknown) date) Confirmed 09/08/22] unknown) (unknown) (no (unknown) (unknown) 09/08/22 (units (unkno wn) date) unknown) (unknown) (no (unknown) (unknown) 09/08/22] (units (unkn own) date) unknown) (unknown) (no (unknown) (unknown) 09:47 (units (unkno wn) date) unknown) (unknown) (no (unknown) (unknown) 1 tab after at (units (unknown) date) least 2 hrs; max = 2 unknown) tabs/24 hrs PO 7 tabs 3RF (unknown) (no (unknown) (unknown) 2RF (units (unkno wn) date) unknown) (unknown) (no (unknown) (unknown) 36 yo female (units (u nknown) date) presents today for unknown) anxiety and med review. 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 with a chief complaint of (unknown) (no (unknown) (unknown) Abdomen-soft (units (u nknown) date) nontender, no HSM, unknown) no palpable masses rebound or guarding the (unknown) (no (unknown) (unknown) Achilles tendon (units (unknown) date) injury unknown) (unknown) (no (unknown) (unknown) Acute maxillary (units (unknown) date) sinusitis unknown) (unknown) (no (unknown) (unknown) Age/Sex: 36 / F (units (unknown) date) Date of Service: unknown) (unknown) (no (unknown) (unknown) Allergies (units (unkn own) date) unknown) (unknown) (no (unknown) (unknown) [place] [address] (unit s (unknown) date) unknown) (unknown) (no (unknown) (unknown) Anxious appearing (units (unknown) date) middle-aged female unknown) adult with complaints, contributed to (unknown) (no (unknown) (unknown) Assessment + Plan (units (unknown) date) unknown) (unknown) (no (unknown) (unknown) Assessment and (units (unknown) date) Plan: unknown) (unknown) (no (unknown) (unknown) Asthma severity: (units (unknown) date) mild Asthma unknown) persistence: intermittent Asthma (unknown) (no (unknown) (unknown) Asthma (units (unkno wn) date) unknown) (unknown) (no (unknown) (unknown) Attending Dr: Thad Cao (unit s (unknown) date) Andrew Carroll unknown) (unknown) (no (unknown) (unknown) Attention deficit (units (unknown) date) disorder (ADD) in unknown) adult (unknown) (no (unknown) (unknown) BMI 41.1 (units (unkno wn) date) unknown) (unknown) (no (unknown) (unknown) BP 118/82 (units (unkn own) date) unknown) (unknown) (no (unknown) (unknown) Blood Pressure (units (unknown) date) Location Lt brachial unknown) (unknown) (no (unknown) (unknown) Cephalosporins (units (unknown) date) [CEPHALOSPORINS] unknown) Allergy (Intermediate, Verified 03/25/22 16:19) (unknown) (no (unknown) (unknown) Chest-heart regular (units (unknown) date) rate and rhythm unknown) lungs clear to auscultation no wheezes rales (unknown) (no (unknown) (unknown) Chief Complaint (units (unknown) date) unknown) (unknown) (no (unknown) (unknown) Chief Complaint: (units (unknown) date) Anxiety concerns unknown) regarding ADD (unknown) (no (unknown) (unknown) : 1985 (units (unknown) date) Acct:[id number] unknown) (unknown) (no (unknown) (unknown) Dept at (units (unkno wn) date) . unknown) (unknown) (no (unknown) (unknown) Details: (units (unkno wn) date) unknown) (unknown) (no (unknown) (unknown) Documented By: (units (unknown) date) Thad Morales D.O. unknown) 09/08/22 0933 (unknown) (no (unknown) (unknown) Epigastric (units (unk nown) date) discomfort unknown) (unknown) (no (unknown) (unknown) Exam Narrative (units (unknown) date) unknown) (unknown) (no (unknown) (unknown) Exam Narrative: (units (unknown) date) unknown) (unknown) (no (unknown) (unknown) Exam (units (unkno wn) date) unknown) (unknown) (no (unknown) (unknown) Family Practice (units (unknown) date) Office Visit unknown) (unknown) (no (unknown) (unknown) [facility]) (unknown) (no (unknown) (unknown) General physical (units (unknown) date) examination, unknown) physical examination (unknown) (no (unknown) (unknown) HPI (units (unkno wn) date) unknown) (unknown) (no (unknown) (unknown) Head-normocephalic (units (unknown) date) atraumatic, unknown) (unknown) (no (unknown) (unknown) Height 5 ft 5 in (units (unknown) date) unknown) (unknown) (no (unknown) (unknown) Initiate this dose (units (unknown) date) 1st 75 mg PO DAILY 7 unknown) tabs 0RF (unknown) (no (unknown) (unknown) Intake Note: (units (u nknown) date) unknown) (unknown) (no (unknown) (unknown) Intake performed (units (unknown) date) by: Roseanne Berry unknown) (unknown) (no (unknown) (unknown) Intake (units (unkno wn) date) unknown) (unknown) (no (unknown) (unknown) Intake- Clincial (units (unknown) date) Staff unknown) (unknown) (no (unknown) (unknown) Loc: [facility] (units (unkno wn) date) unknown) (unknown) (no (unknown) (unknown) Medical History (units (unknown) date) (Reviewed 09/08/22 @ unknown) 10:24 by Thad Morales DO) (unknown) (no (unknown) (unknown) Medications (units (un known) date) unknown) (unknown) (no (unknown) (unknown) Medications: (units (u nknown) date) unknown) (unknown) (no (unknown) (unknown) Migraine with acute (unit s (unknown) date) onset aura unknown) (unknown) (no (unknown) (unknown) Neck-supple no (units (unknown) date) thyromegaly, JVD or unknown) lymphadenopathy (unknown) (no (unknown) (unknown) New (units (unkno wn) date) unknown) (unknown) (no (unknown) (unknown) Orders: (units (unkno wn) date) unknown) (unknown) (no (unknown) (unknown) Oxygen Delivery (units (unknown) date) Method room air unknown) (unknown) (no (unknown) (unknown) PFSH (units (unkno wn) date) unknown) (unknown) (no (unknown) (unknown) Patient continues (units (unknown) date) have difficulty at unknown) work completing tasks and maintaining (unknown) (no (unknown) (unknown) Patient's albuterol (unit s (unknown) date) and other unknown) medications for seasonal allergic rhinitis review (unknown) (no (unknown) (unknown) Patient: (units (unkno wn) date) Chinyere Oro A unknown) MR#: M (unknown) (no (unknown) (unknown) Position Sitting (units (unknown) date) unknown) (unknown) (no (unknown) (unknown) Pulse 89 (units (unkno wn) date) unknown) (unknown) (no (unknown) (unknown) Pulse Oximetry (%) (units (unknown) date) 98 unknown) (unknown) (no (unknown) (unknown) Pulse Source (units (u nknown) date) Monitor unknown) (unknown) (no (unknown) (unknown) Qualifiers: (units (un known) date) unknown) (unknown) (no (unknown) (unknown) ROS Narrative (units ( unknown) date) unknown) (unknown) (no (unknown) (unknown) ROS Narrative: (units (unknown) date) unknown) (unknown) (no (unknown) (unknown) ROS per HPI. (units (u nknown) date) Patient denies any unknown) other substantial changes in health emergency (unknown) (no (unknown) (unknown) ROS (units (unkno wn) date) unknown) (unknown) (no (unknown) (unknown) Reason For Visit (units (unknown) date) unknown) (unknown) (no (unknown) (unknown) Referral (units (unkno wn) date) Neuropsychology unknown) F98.8 - Other specified behavioral and emotional (unknown) (no (unknown) (unknown) Referrals (units (unkn own) date) unknown) (unknown) (no (unknown) (unknown) Refilled (units (unkno wn) date) unknown) (unknown) (no (unknown) (unknown) Seasonal affective (units (unknown) date) disorder unknown) (unknown) (no (unknown) (unknown) Signed By: (units (unk nown) date) <Electronically unknown) signed by Thad Morales D.O.> (unknown) (no (unknown) (unknown) Signed (units (unkno wn) date) unknown) (unknown) (no (unknown) (unknown) Smoking Status: (units (unknown) date) Current some day unknown) smoker (1 pack per week.) (unknown) (no (unknown) (unknown) Status post (units (un known) date) delivery unknown) (09/18/13) (unknown) (no (unknown) (unknown) Status post tubal (units (unknown) date) ligation (09/18/13) unknown) (unknown) (no (unknown) (unknown) Status: Acute (units ( unknown) date) unknown) (unknown) (no (unknown) (unknown) Status: None (units (u nknown) date) unknown) (unknown) (no (unknown) (unknown) Surgical History (units (unknown) date) (Reviewed 09/08/22 @ unknown) 10:24 by Thad Morales DO) (unknown) (no (unknown) (unknown) This note may have (units (unknown) date) been all or unknown) partially generated using voice recognition (unknown) (no (unknown) (unknown) Tobacco + Substance (unit s (unknown) date) Use unknown) (unknown) (no (unknown) (unknown) Tobacco Status (units (unknown) date) unknown) (unknown) (no (unknown) (unknown) Tobacco: How many (units (unknown) date) years used: 6 unknown) (unknown) (no (unknown) (unknown) Visit Reasons: (units (unknown) date) Anxiety; med review unknown) (unknown) (no (unknown) (unknown) Vital signs are (units (unknown) date) reported, charted unknown) and reviewed with patient (unknown) (no (unknown) (unknown) Vitals (units (unkno wn) date) unknown) (unknown) (no (unknown) (unknown) Weight 247 lb 6 oz (units (unknown) date) unknown) (unknown) (no (unknown) (unknown) albuterol sulfate (units (unknown) date) 90 mcg/actuation unknown) (Proventil HFA) 2 puffs inhalation Q6HP #8.5 (unknown) (no (unknown) (unknown) albuterol sulfate (units (unknown) date) 90 mcg/actuation unknown) aerosol inhaler (Proventil HFA) 2 puff (unknown) (no (unknown) (unknown) alcohol intake: (units (unknown) date) current (-once every unknown) other week ) (unknown) (no (unknown) (unknown) allergy symptoms (units (unknown) date) unknown) (unknown) (no (unknown) (unknown) appear to be is 1 (units (unknown) date) anxious and notes unknown) ongoing stress. (unknown) (no (unknown) (unknown) as a single dose (units (unknown) date) 0.3 mg (0.3 mL) IM unknown) ONCE 2 ea 1RF (unknown) (no (unknown) (unknown) assigned work (units ( unknown) date) unknown) (unknown) (no (unknown) (unknown) assignments. The (units (unknown) date) patient will be unknown) initiated on Wellbutrin 150 mg and referred to (unknown) (no (unknown) (unknown) asthma, (units (unkno wn) date) uncomplicated unknown) (unknown) (no (unknown) (unknown) bupropion HCl 150 (units (unknown) date) mg 24 hr tablet, unknown) extended release 150 mg PO QAM #30 tabs (unknown) (no (unknown) (unknown) bupropion HCl 150 (units (unknown) date) mg PO QAM 30 tabs unknown) 2RF (unknown) (no (unknown) (unknown) bupropion HCl 75 mg (unit s (unknown) date) tablet 75 mg PO unknown) DAILY #7 tabs 09/08/22 [Rx Confirmed (unknown) (no (unknown) (unknown) bupropion HCl (units ( unknown) date) unknown) (unknown) (no (unknown) (unknown) complication type: (units (unknown) date) uncomplicated unknown) Qualified Code(s): J45.20 - Mild intermittent (unknown) (no (unknown) (unknown) disorders with (units (unknown) date) onset usually unknown) occurring in childhood and adolescence (unknown) (no (unknown) (unknown) epinephrine (EpiPen (unit s (unknown) date) 2-Derek) unknown) (unknown) (no (unknown) (unknown) epinephrine 0.3 (units (unknown) date) mg/0.3 mL injection, unknown) auto-injector (EpiPen 2-Derek) 0.3 mg (0.3 (unknown) (no (unknown) (unknown) features: (units (unkn own) date) unknown) (unknown) (no (unknown) (unknown) fluticasone (units (un known) date) propionate 50 unknown) mcg/actuation 1 spray intranasal Q12H PRN 16 mL 6RF (unknown) (no (unknown) (unknown) fluticasone (units (un known) date) propionate 50 unknown) mcg/actuation nasal spray,suspension 1 spray (unknown) (no (unknown) (unknown) focus. She has had (units (unknown) date) a history of ADD in unknown) the past notes a little depression next (unknown) (no (unknown) (unknown) getting significant (unit s (unknown) date) administrative unknown) support from her assistance. Generally (unknown) (no (unknown) (unknown) have occurred. 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 to feels that she is not (unknown) (no (unknown) (unknown) history and exam (units (unknown) date) unknown) (unknown) (no (unknown) (unknown) hydrocodone [From (units (unknown) date) Vicodin] Allergy unknown) (Severe, Verified 03/25/22 16:19) (unknown) (no (unknown) (unknown) hydromorphone [From (unit s (unknown) date) DILAUDID] Allergy unknown) (Intermediate, Verified 03/25/22 16:19) (unknown) (no (unknown) (unknown) inhalation Q6HP (units (unknown) date) ##8.5 09/08/22 [Rx unknown) Confirmed 09/08/22] (unknown) (no (unknown) (unknown) intranasal Q12H PRN (unit s (unknown) date) allergy symptoms #16 unknown) mL 09/08/22 [Rx Confirmed 09/08/22] (unknown) (no (unknown) (unknown) led to her (units (unk nown) date) inability be unknown) productive and accomplishing tasks, staying focus and (unknown) (no (unknown) (unknown) mL) IM ONCE #2 ea (units (unknown) date) 09/08/22 [Rx unknown) Confirmed 09/08/22] (unknown) (no (unknown) (unknown) may occur. (units (unk nown) date) Occasional unknown) wrong-word or 'sound-alike' substitutions may have (unknown) (no (unknown) (unknown) more since her (units (unknown) date) children got older x unknown) past 3 years. (unknown) (no (unknown) (unknown) neuropsych for an (units (unknown) date) ADD assessment. She unknown) will follow back up in November for (unknown) (no (unknown) (unknown) nonpharmacological (units (unknown) date) methods to improve unknown) her focus and impulse control (unknown) (no (unknown) (unknown) notes that she is (units (unknown) date) extremely overloaded unknown) of work causing some anxiety which has (unknown) (no (unknown) (unknown) occurred due to the (unit s (unknown) date) inherent limitations unknown) of voice recognition software. Please (unknown) (no (unknown) (unknown) ongoing stress (units (unknown) date) anxiety issues unknown) problems concerning potential ADD at work. She (unknown) (no (unknown) (unknown) or rhonchi, good (units (unknown) date) peripheral pulses unknown) (unknown) (no (unknown) (unknown) problems focusing (units (unknown) date) at work and home. unknown) States it's been a past problem, noticed (unknown) (no (unknown) (unknown) propranolol 10 mg (units (unknown) date) PO TID 90 tabs 5RF unknown) (unknown) (no (unknown) (unknown) propranolol 10 mg (units (unknown) date) tablet 10 mg PO TID unknown) #90 tabs 09/08/22 [Rx Confirmed 09/08/22] (unknown) (no (unknown) (unknown) quit status: not (units (unknown) date) considering quitting unknown) (unknown) (no (unknown) (unknown) rash, headaches, (units (unknown) date) 'start breathing unknown) weird' (unknown) (no (unknown) (unknown) read the note (units ( unknown) date) carefully and unknown) recognize, using context, where these substitutions (unknown) (no (unknown) (unknown) reassessment. She (units (unknown) date) also employed unknown) strategies such as a do not test her time at (unknown) (no (unknown) (unknown) refilled today as (units (unknown) date) well as others unknown) requested for refills (unknown) (no (unknown) (unknown) review goes to her (units (unknown) date) to answer questions unknown) except her. On today's visit she does (unknown) (no (unknown) (unknown) room visits or (units (unknown) date) hospitalizations. We unknown) discussed issues related to (unknown) (no (unknown) (unknown) simply getting (units (unknown) date) things done. She is unknown) under lot substantial amount of stress from (unknown) (no (unknown) (unknown) software. Although (units (unknown) date) every effort is made unknown) to edit content, manager valuation errors (unknown) (no (unknown) (unknown) substance use type: (unit s (unknown) date) does not use unknown) (unknown) (no (unknown) (unknown) sumatriptan (units (un known) date) succinate 100 mg unknown) tablet See Rx Instructions PO .COMPLEX #7 tabs (unknown) (no (unknown) (unknown) sumatriptan (units (un known) date) succinate take 1 tab unknown) at onset of headache; if no relief, may repeat (unknown) (no (unknown) (unknown) topiramate [From (units (unknown) date) Topamax] Adverse unknown) Reaction (Severe, Verified 03/25/22 16:19) (unknown) (no (unknown) (unknown) very angry (units (unk nown) date) unknown) (unknown) (no (unknown) (unknown) with anxiety (units (u nknown) date) recently due to the unknown) underlying stress my completing her workplace (unknown) (no (unknown) (unknown) work so she may (units (unknown) date) focus on policy and unknown) projects to assist with her cough she her Result panel 5 (unknown) (no date) (unknown) (unknown) 0.9 % (unkn own) (unknown) (no date) (unknown) (unknown) 100 /ul (unkn own) (unknown) (no date) (unknown) (unknown) 12.6 g/dl (unkn own) (unknown) (no date) (unknown) (unknown) 14.7 % (unkn own) (unknown) (no date) (unknown) (unknown) 1700 /ul (unkn own) (unknown) (no date) (unknown) (unknown) 2.7 % (unkn own) (unknown) (no date) (unknown) (unknown) 200 /ul (unkn own) (unknown) (no date) (unknown) (unknown) 26.5 pg (unkn own) (unknown) (no date) (unknown) (unknown) 27.0 % (unkn own) (unknown) (no date) (unknown) (unknown) 275 x10 3/ul (unkn own) (unknown) (no date) (unknown) (unknown) 300 /ul (unkn own) (unknown) (no date) (unknown) (unknown) 32.2 % (unkn own) (unknown) (no date) (unknown) (unknown) 39.2 % (unkn own) (unknown) (no date) (unknown) (unknown) 4.6 % (unkn own) (unknown) (no date) (unknown) (unknown) 4.77 x10 6/ul (unkn own) (unknown) (no date) (unknown) (unknown) 4200 /ul (unkn own) (unknown) (no date) (unknown) (unknown) 6.4 x10 3/ul (unkn own) (unknown) (no date) (unknown) (unknown) 64.8 % (unkn own) (unknown) (no date) (unknown) (unknown) 82.1 fl (unkn own) Result panel 6 (unknown) (no date) (unknown) (unknown) > 60 ml/min (unkn own) (unknown) (no date) (unknown) (unknown) > 60 ml/min (unkn own) (unknown) (no date) (unknown) (unknown) 0.5 mg/dl (unkn own) (unknown) (no date) (unknown) (unknown) 0.78 mg/dl (unkn own) (unknown) (no date) (unknown) (unknown) 107 mmol/l (unkn own) (unknown) (no date) (unknown) (unknown) 129 mg/dl (unkn own) (unknown) (no date) (unknown) (unknown) 129 mg/dl (unkn own) (unknown) (no date) (unknown) (unknown) 140 mmol/l (unkn own) (unknown) (no date) (unknown) (unknown) 15 mg/dl (unkn own) (unknown) (no date) (unknown) (unknown) 19 iu/l (unkn own) (unknown) (no date) (unknown) (unknown) 19.2 (units unknown) (unknown) (unknown) (no date) (unknown) (unknown) 190 mg/dl (unkn own) (unknown) (no date) (unknown) (unknown) 190 mg/dl (unkn own) (unknown) (no date) (unknown) (unknown) 22 iu/l (unkn own) (unknown) (no date) (unknown) (unknown) 24 mmol/l (unkn own) (unknown) (no date) (unknown) (unknown) 4.8 mmol/l (unkn own) (unknown) (no date) (unknown) (unknown) 44 mg/dl (unkn own) (unknown) (no date) (unknown) (unknown) 44 mg/dl (unkn own) (unknown) (no date) (unknown) (unknown) 8.3 g/dl (unkn own) (unknown) (no date) (unknown) (unknown) 8.9 mg/dl (unkn own) (unknown) (no date) (unknown) (unknown) 85 u/l (unkn own) (unknown) (no date) (unknown) (unknown) 87 mg/dl (unkn own) (unknown) (no date) (unknown) (unknown) 87 mg/dl (unkn own) (unknown) (no date) (unknown) (unknown) 96 mg/dl (unkn own) (unknown) (no date) (unknown) (unknown) 96 mg/dl (unkn own) Result panel 7 (unknown) (no date) (unknown) (unknown) 2.99 uiu/ml (unkn own) Result panel 8 (unknown) (no date) (unknown) (unknown) > 60 ml/min (unkn own) (unknown) (no date) (unknown) (unknown) > 60 ml/min (unkn own) (unknown) (no date) (unknown) (unknown) 0.5 mg/dl (unkn own) (unknown) (no date) (unknown) (unknown) 0.78 mg/dl (unkn own) (unknown) (no date) (unknown) (unknown) 1.1 (units unknown) (unknown) (unknown) (no date) (unknown) (unknown) 107 mmol/l (unkn own) (unknown) (no date) (unknown) (unknown) 129 mg/dl (unkn own) (unknown) (no date) (unknown) (unknown) 129 mg/dl (unkn own) (unknown) (no date) (unknown) (unknown) 140 mmol/l (unkn own) (unknown) (no date) (unknown) (unknown) 15 mg/dl (unkn own) (unknown) (no date) (unknown) (unknown) 19 iu/l (unkn own) (unknown) (no date) (unknown) (unknown) 19.2 (units unknown) (unknown) (unknown) (no date) (unknown) (unknown) 190 mg/dl (unkn own) (unknown) (no date) (unknown) (unknown) 190 mg/dl (unkn own) (unknown) (no date) (unknown) (unknown) 22 iu/l (unkn own) (unknown) (no date) (unknown) (unknown) 24 mmol/l (unkn own) (unknown) (no date) (unknown) (unknown) 3.9 g/dl (unkn own) (unknown) (no date) (unknown) (unknown) 4.4 g/dl (unkn own) (unknown) (no date) (unknown) (unknown) 4.8 mmol/l (unkn own) (unknown) (no date) (unknown) (unknown) 44 mg/dl (unkn own) (unknown) (no date) (unknown) (unknown) 44 mg/dl (unkn own) (unknown) (no date) (unknown) (unknown) 8.3 g/dl (unkn own) (unknown) (no date) (unknown) (unknown) 8.9 mg/dl (unkn own) (unknown) (no date) (unknown) (unknown) 85 u/l (unkn own) (unknown) (no date) (unknown) (unknown) 87 mg/dl (unkn own) (unknown) (no date) (unknown) (unknown) 87 mg/dl (unkn own) (unknown) (no date) (unknown) (unknown) 96 mg/dl (unkn own) (unknown) (no date) (unknown) (unknown) 96 mg/dl (unkn own) Social History date description facility 2022-09-08 00:00 Current some day smoker [facility] Vital Signs date measurement value units 2022-09-08 00:00 BMI 41.1 kg/m2 2022-09-08 00:00 BP_diastolic 82 mmHg 2022-09-08 00:00 BP_systolic 118 mmHg 2022-09-08 00:00 heart_rate 89 /min 2022-09-08 00:00 height_metric 165.1 cm 2022-09-08 00:00 height_standard 65 in 2022-09-08 00:00 o2_saturation 98 % 2022-09-08 00:00 weight_metric 112.2 kg 2022-09-08 00:00 weight_standard 247.36 lb
[2022-10-26 01:24] LABS: BASOPHILS # (AUTO) 0.1 10^3/uL (0.0-0.1); BASOPHILS % (AUTO) 0.6 %; EOSINOPHILS # (AUTO) 0.3 10^3/uL (0.0-0.7); EOSINOPHILS % (AUTO) 2.7 %; HGB - HEMOGLOBIN 12.6 g/dL (12.0-16.0); LYMPHOCYTES # (AUTO) 3.5 10^3/uL (1.5-3.5); LYMPHOCYTES % (AUTO) 34.2 %; MEAN CORPUSCULAR HEMOGLOBIN 25.9 pg (27.0-31.0); MEAN CORPUSCULAR HGB CONC 30.7 g/dL (32.0-36.0); MEAN CORPUSCULAR VOLUME 84.2 fL (81.0-99.0); MEAN PLATELET VOLUME 11.3 fL (7.9-10.8); MONOCYTES # (AUTO) 0.6 10^3/uL (0.0-1.0); MONOCYTES % (AUTO) 6.1 %; NEUTROPHILS # (AUTO) 5.8 10^3/uL (1.5-6.6); NEUTROPHILS % (AUTO) 56.1 %; PLT - PLATELET COUNT 316 10^3/uL (130-450); RED BLOOD COUNT 4.87 10^6/uL (4.20-5.40); RED CELL DISTRIBUTION WIDTH 13.6 % (12.0-15.0); WHITE BLOOD COUNT 10.4 x10^3/uL (4.8-10.8)
[2022-10-26 01:49] LABS: ALBUMIN 3.8 g/dL (3.2-5.5); BILIRUBIN,TOTAL 0.4 mg/dL (0.2-1.0); CALCIUM 9.3 mg/dL (8.5-10.3); CREATININE 0.9 mg/dL (0.4-1.0); POTASSIUM 3.6 mmol/L (3.5-5.0); TOTAL PROTEIN 7.8 g/dL (6.7-8.2)
[2022-10-26] MEDS ORDERED: SODIUM CHLORIDE 0.9% 2,000 ML IV STA (02:04)
[2022-10-26] MEDS ORDERED: FAMOTIDINE 20 MG/2 ML VIAL IVP STA (02:05)
[2022-10-26] MEDS ORDERED: ONDANSETRON 4 MG/2 ML VIAL IVP STA (02:05)
[2022-10-26] MEDS ORDERED: KETOROLAC 30 MG/ML VIAL IVP STA (02:09)
--- NOTE | 2022-10-26 02:10 | ED Physician Documentation ---
History of Present Illness - Stated complaint Stated Complaint: ABD PX/NAUSEA - Chief complaint Chief Complaint: Abd Pain - History obtained from History obtained from: Patient - Additonal information Additional information: 36-year-old woman With history of depression, otherwise pretty healthy, presents with left upper quadrant pain sudden in onset radiating to the back about 45 minutes prior to arrival waking her from sleep with associated nonbloody nonbilious nausea and vomiting. Patient had a normal bowel movement today and denies diarrhea or fevers. No sick contacts. Past surgical history includes C- section but no other abdominal surgeries. 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 ASSEMBLER: section, Tubal ligation HEENT: Tonsil/Adenoidectomy - Present Medications Home Medications: Ambulatory Orders Medication Instructions Recorded Confirmed Fluticasone [Flonase] 2 sprays DWIGHT Q6HR PRN 10/26/22 10/26/22 Ondansetron Odt [Zofran Odt] 4 mg TL Q6H PRN #10 tablet 10/26/22 Oxycodone HCl/Acetaminophen 1 each PO Q4H PRN #10 tablet 10/26/22 [Percocet 10-325 mg Tablet] Propranolol [Inderal] 10 mg PO TID 10/26/22 10/26/22 Sumatriptan Succinate [Imitrex] 100 mg PO DAILY PRN 10/26/22 10/26/22 Tamsulosin [Flomax] 0.4 mg PO DAILY 14 Days #14 tab 10/26/22 buPROPion [Wellbutrin Sr] 100 mg PO DAILY 10/26/22 10/26/22 - Allergies Allergies/Adverse Reactions: Allergies Allergy/AdvReac Type Severity Reaction Status Date / Time Cephalosporins Allergy Severe Respiratory Verified 10/26/22 01:08 hydromorphone HCl * Allergy Intermediate Hives Verified 10/26/22 01:08 [From Dilaudid] acetaminophen [From Vicodin] Allergy Rash Verified 10/26/22 01:08 hydrocodone [From Vicodin] Allergy Rash Verified 03/07/23 01:08 - Social History Does the pt smoke?: Yes Smoking Status: Current every day smoker Does the pt drink ETOH?: No Does the pt have substance abuse?: No - Immunizations Immunizations are current?: Yes - POLST Patient has POLST: No PD ED PE NORMAL - Vitals Vital signs reviewed: Yes - General General: Alert and oriented X 3, No acute distress, Well developed/nourished - HEENT HEENT: Atraumatic, PERRL, EOMI - Neck Neck: Supple, no meningeal sign - Cardiac Cardiac: RRR - Respiratory Respiratory: No respiratory distress, Clear bilaterally - Abdomen Abdomen: Non tender, Non distended - Back Back: Other (L CVA ttp) Results - Vitals Vitals: Vital Signs - 24 hr 10/26/22 10/26/22 10/26/22 01:00 01:58 02:53 Temperature 37.0 C Heart Rate 67 70 60 Respiratory 20 18 20 Rate Blood Pressure 146/88 H 126/89 H 130/96 H O2 Saturation 100 100 100 10/26/22 10/26/22 04:09 05:55 Temperature Heart Rate 73 68 Respiratory 18 17 Rate Blood Pressure 130/71 143/84 H O2 Saturation 99 98 Oxygen O2 Source Room air - Labs Labs: Laboratory Tests 10/26/22 10/26/22 10/26/22 01:15 01:15 01:54 WBC 10.4 RBC 4.87 Hgb 12.6 Hct 41.0 MCV 84.2 MCH 25.9 L MCHC 30.7 L RDW 13.6 Plt Count 316 MPV 11.3 H Neut # (Auto) 5.8 Lymph # (Auto) 3.5 [place] # (Auto) 0.6 Eos # (Auto) 0.3 Baso # (Auto) 0.1 Absolute Nucleated RBC 0.00 Nucleated RBC % 0.0 Sodium 143 Potassium 3.6 Chloride 106 Carbon Dioxide 28 Anion Gap 9.0 BUN 11 Creatinine 0.9 Estimated GFR (MDRD) 72 L Glucose 120 H Calcium 9.3 Total Bilirubin 0.4 AST 15 ALT 15 Alkaline Phosphatase 74 Total Protein 7.8 Albumin 3.8 Globulin 4.0 Albumin/Globulin Ratio 1.0 Lipase 30 Urine Color Cancelled Urine Clarity Cancelled Urine pH Cancelled Ur Specific [place] Cancelled Urine Protein Cancelled Urine Glucose (UA) Cancelled Urine Ketones Cancelled Urine Occult Blood Cancelled Urine Nitrite Cancelled Urine Bilirubin Cancelled Urine Ictotest Urine Urobilinogen Cancelled Ur Leukocyte Esterase Cancelled Urine RBC Urine WBC Ur Squamous Epith Cells Urine Bacteria Ur Microscopic Review Cancelled Urine Culture Comments Cancelled Urine HCG, Qual 10/26/22 10/26/22 01:54 03:58 WBC RBC Hgb Hct MCV MCH MCHC RDW Plt Count MPV Neut # (Auto) Lymph # (Auto) [place] # (Auto) Eos # (Auto) Baso # (Auto) Absolute Nucleated RBC Nucleated RBC % Sodium Potassium Chloride Carbon Dioxide Anion Gap BUN Creatinine Estimated GFR (MDRD) Glucose Calcium Total Bilirubin AST ALT Alkaline Phosphatase Total Protein Albumin Globulin Albumin/Globulin Ratio Lipase Urine Color Cancelled YELLOW Urine Clarity Cancelled CLEAR Urine pH Cancelled 6.0 Ur Specific [place] Cancelled >=1.030 H Urine Protein Cancelled NEGATIVE Urine Glucose (UA) Cancelled NEGATIVE Urine Ketones Cancelled NEGATIVE Urine Occult Blood Cancelled SMALL H Urine Nitrite Cancelled NEGATIVE Urine Bilirubin Cancelled NEGATIVE Urine Ictotest Cancelled Urine Urobilinogen Cancelled 0.2 (NORMAL) Ur Leukocyte Esterase Cancelled NEGATIVE Urine RBC 0-5 Urine WBC 0-3 Ur Squamous Epith Cells MANY Squamous H Urine Bacteria Few Ur Microscopic Review Cancelled INDICATED Urine Culture Comments Cancelled NOT INDICATED Urine HCG, Qual NEGATIVE PD Medical Decision Making - ED course ED course: 36-year-old woman presents with sudden onset abdominal pain and vomiting 45 minutes prior to arrival. Plan to provide symptomatic care with IV Toradol, IV Zofran, IV normal saline, and investigate for abdominal pathology with CBC, abdominal panel, and urinalysis as well as hCG. Will reevaluate. Pain controlled with IV morphine and toradol. nausea resolved s/p zofran. Labwork noncontributory. u/a shows blood but no infection. CT a/p was performed with Emergency physician wet read of distal L ureter stone and hydronephrosis. Outside radiologist Corroborated. Patient to be discharged with outpatient follow-up with urology. Symptomatic care discussed. Return precautions given. Departure - Departure Disposition: 01 Home, Self Care Clinical Impression: Kidney calculi, Hydronephrosis Condition: Stable Instructions: Kidney Stones Follow-Up: Liliana Geiger MD [Physician No Access] - Prescriptions: Tamsulosin [Flomax] 0.4 mg PO DAILY 14 Days #14 tab Oxycodone HCl/Acetaminophen [Percocet 10-325 mg Tablet] 1 each PO Q4H PRN #10 tablet PRN Reason: Pain Ondansetron Odt [Zofran Odt] 4 mg TL Q6H PRN #10 tablet PRN Reason: Nausea / Vomiting Comments: You are seen in the emergency department for kidney stones. Please follow-up with urology. [facility] [place].Return to the emergency department for new or wor sening symptoms or other concerns.
[2022-10-26 02:12] LABS: HCG UR QUAL NEGATIVE
[2022-10-26] MEDS ORDERED: MORPHINE 2 MG/ML CARPUJECT IVP STA ×2 (02:46→03:56)
[2022-10-26] MEDS ORDERED: SODIUM CHLORIDE 0.9% 1,000 ML IV STA (03:57)
[2022-10-26 04:03] LABS: BILIRUBIN,URINE NEGATIVE (NEGATIVE); CLARITY,URINE CLEAR (CLEAR); GLUCOSE, URINE (UA) NEGATIVE (NEGATIVE); KETONES,URINE (UA) NEGATIVE (NEGATIVE); LEUKOCYTE ESTERASE, URINE NEGATIVE (NEGATIVE); NITRITE,URINE NEGATIVE (NEGATIVE); OCCULT BLOOD,URINE SMALL (NEGATIVE); PROTEIN,URINE NEGATIVE (NEGATIVE); UROBILINOGEN,URINE 0.2 (NORMAL) E.U./dL (NORMAL)
[2022-10-26 04:11] LABS: BACTERIA,URINE Few /HPF (None Seen); RBC,URINE 0-5 /HPF (0-5); SQUAMOUS EPITHELIAL CELL,UR MANY Squamous (<= Few); WBC,URINE 0-3 /HPF (0-5)
[2022-10-26] MEDS ORDERED: iohexoL-300 100 ML VIAL ONE (05:03)
[2022-10-26] MEDS ORDERED: iohexoL-300 100 ML VIAL IVP ONE (06:00)
[2022-10-26] MEDS ORDERED: oxyCODONE/ACET 5/325 Prepack 4 PO STA (06:40)
[2022-10-26] MEDS ORDERED: ONDANSETRON ODT 4 MG Prepack 2 TL PRN (06:40)
[2022-10-26 07:04] VITALS: BP 155/93
--- NOTE | 2022-10-26 10:06 | CT Report ---
PROCEDURE: ABDOMEN/PELVIS W INDICATIONS: abdominal pain CONTRAST: Omni 300 100ml TECHNIQUE: After the administration of IV contrast, 5 mm thick sections acquired from the diaphragms to the symp hysis. 5 mm thick coronal and sagittal reformats were acquired. For radiation dose reduction, the f ollowing was used: automated exposure control, adjustment of mA and/or kV according to patient size. COMPARISON: CT abdomen and pelvis, 08/13/2019. FINDINGS: Image quality: Excellent. ABDOMEN: Lung bases: Lung bases are clear. Heart size is normal. Solid organs: Liver and spleen are normal in size and enhancement. Gallbladder is normal Biliary s ystem is non dilated. Pancreas enhances normally. No adrenal nodules. Kidneys demonstrate normal size and enhancement. Mild left hydronephrosis and perinephric stranding. There is a 3 mm stone at the left UVJ Peritoneum and bowel: Bowel loops demonstrate normal wall thickness and caliber. No free fluid or a ir. Nodes and vessels: No retroperitoneal or mesenteric adenopathy by size criteria. Aorta and inferior vena cava are normal in size. Miscellaneous: No ventral hernias. PELVIS: Genitourinary: Bladder wall thickness is normal. Miscellaneous: No inguinal hernias or adenopathy. Bones: No suspicious bony lesions. No vertebral body compression fractures. IMPRESSION: 1. There is a 3 mm obstructive stone in the left UVJ causing mild left hydronephrosis. No significant discrepancy with the preliminary interpretation. Reviewed by: Rosario Burt MD on 10/26/2022 10:05 AM PST Approved by: Rosario Burt MD on 10/26/2022 10:05 AM PST Station ID: [id number]
== END 2022-10-26 07:05 | disposition home or self-care (01) ==
LOC: ED 00:57
DX: N13.2 Hydronephrosis with renal and ureteral calculous obstruction (principal); F17.200 Nicotine dependence, unspecified, uncomplicated
CPT/HCPCS: 36415; 74177; 80053; 81001; 81025; 83690; 85025; 96374; 96375; 96376; 99284; Q9967; 81003; 87086

== ENCOUNTER 2022-10-28 09:26 | Emergency (ER) | payer MEDICAID ==
--- OUTSIDE RECORDS SUMMARY | 2022-10-28 10:34 | EXTERNAL MEDICAL SUMMARY RPT | Continuity of Care Document ---
:1985 Author Organization [facility] Address [address] [place] [address] Phone Care Team Providers Name Role Phone Thad Morales Unavailable Unavailable Allergies No information. Encounters No information. Functional Status No information. Immunizations No information. Medications date description facility 2022-09-08 00:00 Fluticasone Propionate [facility] 2022-09-08 00:00 Epinephrine [facility] 2022-09-08 00:00 Albuterol Sulfate [facility] 2022-09-08 00:00 Sumatriptan Succinate [facility] 2022-09-01 00:00 Propranolol [facility] 2022-09-08 00:00 Propranolol [facility] 2022-09-08 00:00 Bupropion Hcl [facility] 2022-09-08 00:00 Bupropion Hcl [facility] Problems date description facility 2022-09-08 00:00 Attention deficit disorder (ADD) in karlee lt [facility] 2022-09-09 09:01 [facility], [facility]:01 Other specified behavioral and emotiona l [facility] disorders with onse 2022-09-09 09:01 Mild intermittent asthma, [facility] 2022-09-09 09:09 Other recurrent depressive disorders [facility] 2022-09-09 09:09 Migraine with aura, not intractable, [facility] status migraino 2022-09-09 09:09 Mild intermittent asthma, uncomplicated [facility] 2022-09-09 09:09 Epigastric pain [facility] 2022-09-09 09:39 Other recurrent depressive disorders [facility] 2022-09-09 09:39 Migraine with aura, not intractable, [facility] status migraino 2022-09-09 09:39 Mild intermittent asthma, [facility] 2022-09-09 09:39 Epigastric pain [facility] Procedures No information. Results/Labs test date author facility value unit interpret ation Result panel 1 (unknown) (no (unknown) (unknown) (no value) (units (unk nown) date) unknown) (unknown) (no (unknown) (unknown) [id number] (units (unkn own) date) unknown) (unknown) (no [...] (unknown) TAMRA [place] (units ( unknown) date) [id number] unknown) (unknown) (no (unknown) (unknown) Asthma (units (unkno wn) date) unknown) (unknown) (no (unknown) (unknown) Attending Dr: (units ( unknown) date) Thad Morales unknown) D.O. (unknown) (no (unknown) (unknown) Cephalosporins (units (unknown) date) [CEPHALOSPORINS] unknown) Allergy (Intermediate, Verified 03/25/22 16:19) (unknown) (no (unknown) (unknown) : 1985 (units (unknown) date) Acct:[id number] unknown) (unknown) (no (unknown) (unknown) Dept at (units (unkno wn) date) . unknown) (unknown) (no (unknown) (unknown) Documented By: (units (unknown) date) Thad Morales unknown) D.O. 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 (unknown) (no (unknown) (unknown) substance use (units ( unknown) date) type: does not unknown) use (unknown) (no (unknown) (unknown) topiramate [From (units (unknown) date) Topamax] Adverse unknown) Reaction (Severe, Verified 03/25/22 16:19) (unknown) (no (unknown) (unknown) very angry (units (unk nown) date) unknown) Result panel 2 (unknown) (no (unknown) (unknown) (no value) (units (unk nown) date) unknown) (unknown) (no (unknown) (unknown) [id number] (units (unkn own) date) unknown) (unknown) (no [...] own) date) unknown) (unknown) (no (unknown) (unknown) [place], [place] (units ( unknown) date) [id number] unknown) (unknown) (no (unknown) (unknown) Asthma (units [...] (unknown) (unknown) : 1985 (units (unknown) date) Acct:[id number] unknown) (unknown) (no (unknown) (unknown) Dept at [...] unknown) effort is made to edit content, 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 (unknown) (no (unknown) (unknown) substance use [...] known) date) unknown) (unknown) (no (unknown) (unknown) [id number] (units (unkn own) date) unknown) (unknown) (no [...] own) date) unknown) (unknown) (no (unknown) (unknown) [place], [place] (units ( unknown) date) [id number] unknown) (unknown) (no (unknown) (unknown) Assessment + [...] (unknown) (unknown) : 1985 (units (unknown) date) Acct:[id number] unknown) (unknown) (no (unknown) (unknown) Dept at [...] unknown) effort is made to edit content, 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 (unknown) (no (unknown) (unknown) substance use [...] known) date) unknown) (unknown) (no (unknown) (unknown) [id number] (units (unkn own) date) unknown) (unknown) (no [...] (unknown) (unknown) 36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 [...] own) date) unknown) (unknown) (no (unknown) (unknown) [place] [address] (unit s (unknown) date) unknown) (unknown) (no [...] (unknown) (unknown) : 1985 (units (unknown) date) Acct:[id number] unknown) (unknown) (no (unknown) (unknown) Dept at [...] effort is made unknown) to edit content, 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 (unknown) (no (unknown) (unknown) substance use [...] facility 2022-09-08 00:00 Current some day smoker [facility] Vital Signs date measurement value units 2022-09-08 00:00 BMI 41.1 kg/m2 2022-09-08 00:00 BP_diastolic 82 mmHg 2022-09-08 00:00 BP_systolic 118 mmHg 2022-09-08 00:00 heart_rate 89 /min 2022-09-08 00:00 height_metric 165.1 cm 2022-09-08 00:00 height_standard 65 in 2022-09-08 00:00 o2_saturation 98 % 2022-09-08 00:00 weight_metric 112.2 kg 2022-09-08 00:00 weight_standard 247.36 lb
[2022-10-28 10:40] LABS: BASOPHILS % (AUTO) 0.3 %; EOSINOPHILS # (AUTO) 0.1 10^3/uL (0.0-0.7); EOSINOPHILS % (AUTO) 0.9 %; HCT - HEMATOCRIT 37.8 % (37.0-47.0); HGB - HEMOGLOBIN 11.9 g/dL (12.0-16.0); LYMPHOCYTES # (AUTO) 1.3 10^3/uL (1.5-3.5); LYMPHOCYTES % (AUTO) 13.2 %; MEAN CORPUSCULAR HEMOGLOBIN 26.4 pg (27.0-31.0); MEAN CORPUSCULAR HGB CONC 31.5 g/dL (32.0-36.0); MEAN CORPUSCULAR VOLUME 83.8 fL (81.0-99.0); MEAN PLATELET VOLUME 11.7 fL (7.9-10.8); MONOCYTES # (AUTO) 0.5 10^3/uL (0.0-1.0); MONOCYTES % (AUTO) 5.5 %; NEUTROPHILS # (AUTO) 7.9 10^3/uL (1.5-6.6); NEUTROPHILS % (AUTO) 79.9 %; PLT - PLATELET COUNT 279 10^3/uL (130-450); RED BLOOD COUNT 4.51 10^6/uL (4.20-5.40); RED CELL DISTRIBUTION WIDTH 13.8 % (12.0-15.0); WHITE BLOOD COUNT 9.9 x10^3/uL (4.8-10.8)
[2022-10-28 10:41] LABS: BILIRUBIN,URINE NEGATIVE (NEGATIVE); GLUCOSE, URINE (UA) NEGATIVE (NEGATIVE); KETONES,URINE (UA) TRACE mg/dL (NEGATIVE); LEUKOCYTE ESTERASE, URINE NEGATIVE (NEGATIVE); NITRITE,URINE NEGATIVE (NEGATIVE); OCCULT BLOOD,URINE NEGATIVE (NEGATIVE); PH,URINE 6.5 PH (5.0-7.5); PROTEIN,URINE NEGATIVE (NEGATIVE); UROBILINOGEN,URINE 0.2 (NORMAL) E.U./dL (NORMAL)
[2022-10-28 10:42] LABS: CLARITY,URINE CLEAR (CLEAR)
[2022-10-28] MEDS ORDERED: MORPHINE 2 MG/ML CARPUJECT IVP STA (10:51)
[2022-10-28] MEDS ORDERED: DEXAMETHASONE 10 MG/ML VIAL IVP STA (10:51)
[2022-10-28] MEDS ORDERED: DROPERIDOL 5 MG/2 ML VIAL IVP STA (10:51)
[2022-10-28] MEDS ORDERED: SODIUM CHLORIDE 0.9% 1,000 ML IV STA ×2 (10:51→10:52)
[2022-10-28 10:56] LABS: ALBUMIN 3.6 g/dL (3.2-5.5); ALBUMIN/GLOBULIN RATIO 0.9 (1.0-2.2); BILIRUBIN,TOTAL 0.4 mg/dL (0.2-1.0); CREATININE 1.3 mg/dL (0.4-1.0); POTASSIUM 3.9 mmol/L (3.5-5.0); TOTAL PROTEIN 7.5 g/dL (6.7-8.2)
[2022-10-28] MEDS ORDERED: SENNA 8.6 MG TABLET PO STA (10:56)
[2022-10-28] MEDS ORDERED: BISACODYL 10 MG SUPP PR STA (10:56)
[2022-10-28] MEDS ORDERED: DOCUSATE SODIUM 100 MG CAPSULE PO STA (10:56)
--- NOTE | 2022-10-28 11:59 | ED Physician Documentation ---
PD HPI ABD PAIN - Stated complaint Stated Complaint: VOMITING, PX LEFT SIDE - Chief complaint Chief Complaint: Abd Pain - History obtained from History obtained from: Patient - History of Present Illness Timing - onset: How many days ago (3) Timing - duration: Days (3) Timing - details: Abrupt onset, Still present Quality: Aching, Pain Location: RLQ Radiation: Right flank Improved by: Meds (had taken Ibuprofen for pain, with just couple doses of the oxycodone.) Worsened by: No: Moving, Breathing Associated symptoms: Nausea, Constipation (she states no BMs since onset of the pain. Continues to hurt right flank and abd. Also with some epigastric pain now as well.), Loss of appetite. No: Fever, Vomiting Recently seen: Emergency Dept (3 days ago with flank and abd pain, Dx with 3 mm stone at distal ureter on right without other findings.) Review of Systems Constitutional: denies: Fever Cardiac: denies: Chest pain / pressure GI: reports: Abdominal Pain, Nausea, Constipation. 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, Tubal ligation HEENT: Tonsil/Adenoidectomy - Present Medications Home Medications: Ambulatory Orders Medication Instructions Recorded Confirmed Fluticasone [Flonase] 2 sprays DWIGHT Q6HR PRN 10/26/22 10/26/22 Ondansetron Odt [Zofran Odt] 4 mg TL Q6H PRN #10 tablet 10/26/22 Oxycodone HCl/Acetaminophen 1 each PO Q4H PRN #10 tablet 10/26/22 [Percocet 10-325 mg Tablet] Propranolol [Inderal] 10 mg PO TID 10/26/22 10/26/22 Sumatriptan Succinate [Imitrex] 100 mg PO DAILY PRN 10/26/22 10/26/22 Tamsulosin [Flomax] 0.4 mg PO DAILY 14 Days #14 tab 10/26/22 buPROPion [Wellbutrin Sr] 100 mg PO DAILY 10/26/22 10/26/22 - Allergies Allergies/Adverse Reactions: Allergies Allergy/AdvReac Type Severity Reaction Status Date / Time Cephalosporins Allergy Severe Respiratory Verified 10/28/22 09:35 hydromorphone HCl * Allergy Intermediate Hives Verified 10/28/22 09:35 [From Dilaudid] acetaminophen [From Vicodin] Allergy Rash Verified 10/28/22 09:35 hydrocodone [From Vicodin] Allergy Rash Verified 10/28/22 09:35 - Social History Does the pt smoke?: Yes Smoking Status: Current every day smoker Does the pt drink ETOH?: No Does the pt have substance abuse?: No - Immunizations Immunizations are current?: Yes - POLST Patient has POLST: No PD ED PE NORMAL - Vitals Vital signs reviewed: Yes - General General: Alert and oriented X 3, Well developed/nourished, Other (appears uncomfortable due to flank and abd pain. ) - Abdomen Abdomen: Soft, Non distended, Other (some tendeer without guarding epigastric. Also right flank tneder. ). No: Normal bowel sounds (diminished) - Rectal Rectal: Deferred Results - Vitals Vitals: Vital Signs - 24 hr 10/28/22 10/28/22 10/28/22 09:30 11:24 12:12 Temperature 37 C 36.6 C Heart Rate 98 79 96 Respiratory 16 18 17 Rate Blood Pressure 130/85 H 126/81 H 142/82 H O2 Saturation 97 97 98 10/28/22 12:16 Temperature Heart Rate 80 Respiratory 18 Rate Blood Pressure 142/82 H O2 Saturation 98 Oxygen O2 Source Room air - Labs Labs: Laboratory Tests 10/28/22 10/28/22 10/28/22 09:55 09:55 09:55 WBC 9.9 RBC 4.51 Hgb 11.9 L Hct 37.8 MCV 83.8 MCH 26.4 L MCHC 31.5 L RDW 13.8 Plt Count 279 MPV 11.7 H Neut # (Auto) 7.9 H Lymph # (Auto) 1.3 L [place] # (Auto) 0.5 Eos # (Auto) 0.1 Baso # (Auto) 0.0 Absolute Nucleated RBC 0.00 Nucleated RBC % 0.0 Sodium 137 Potassium 3.9 Chloride 104 Carbon Dioxide 23 Anion Gap 10.0 BUN 8 Creatinine 1.3 H Estimated GFR (MDRD) 47 L Glucose 113 H Calcium 9.0 Total Bilirubin 0.4 AST 14 ALT 12 Alkaline Phosphatase 75 Total Protein 7.5 Albumin 3.6 Globulin 3.9 Albumin/Globulin Ratio 0.9 L Lipase 23 Urine Color YELLOW Urine Clarity CLEAR Urine pH 6.5 Ur Specific [place] 1.015 Urine Protein NEGATIVE Urine Glucose (UA) NEGATIVE Urine Ketones TRACE Urine Occult Blood NEGATIVE Urine Nitrite NEGATIVE Urine Bilirubin NEGATIVE Urine Urobilinogen 0.2 (NORMAL) Ur Leukocyte Esterase NEGATIVE Ur Microscopic Review NOT INDICATED Urine Culture Comments NOT INDICATED PD Medical Decision Making - ED course Complexity details: reviewed results (UA clear without signs of UTI. ), considered differential (several complaints: kidney stone pain not gone yet after 3 days, some epigastric pain now as well, and no BMs for 3 days without distension. Presume constipation relates to pain and the opioids given in ER and some at home. EPigastric likely from the Ibuprofen taken over the past 3-4 days. ), d/w patient Drug Therapy Requiring Monitoring for Toxicity: given some meds IV for pain/nausea here. Given suppos and PO meds for constipation. No BM as yet, but she would prefer to go home and further meds there. Departure - Departure Disposition: 01 Home, Self Care Clinical Impression: Left sided abdominal pain, Ureterolithiasis Constipation Qualifiers: Constipation type: drug induced constipation Qualified Code(s): K59.03 - Drug induced constipation Condition: Stable Record reviewed to determine appropriate education?: Yes Instructions: ED Constipation, ED Stone Renal W Colic Follow-Up: CECILIA COLIN, [Primary Care Provider] - Comments: Stay well-hydrated. Continue your usual medications. For pain I would suggest Tylenol every 4-6 hours if needed for pain or the oxycodone 5 to 10 mg if needed for worse pain. Some of your upper abdominal pain may relate to irritation of the stomach so for now I would avoid NSAIDs such as ibuprofen or naproxen. Stool softeners and laxatives at home such as docusate and senna to help with the constipation. Follow-up with your primary care if not improved over the next few days. Return if needed. Urologist typically will give a kidney stone of this size of a good amount of time to pass before they would think of any interventions. Discharge Date/Time: 10/28/22 12:17
[2022-10-28 12:13] VITALS: BP 142/82
== END 2022-10-28 12:17 | disposition home or self-care (01) ==
LOC: ED 09:26
DX: N20.1 Calculus of ureter (principal); Z87.442 Personal history of urinary calculi; K59.03 Drug induced constipation; T40.2X5A Adverse effect of other opioids, initial encounter; F17.200 Nicotine dependence, unspecified, uncomplicated; Z79.899 Other long term (current) drug therapy
CPT/HCPCS: 36415; 80053; 81003; 83690; 85025; 96361; 96374; 96375; 99283; 99284; A9270; 81001; 87086